=== PATIENT | female | born 1960 | race African-American/Black ===

== ENCOUNTER 2020-01-25 16:15 | Inpatient (IN) | payer MEDICAID ==
[~2020-01-25] VITALS: Ht 157.5 cm; Wt 53.0 kg
[2020-01-25] MEDS ORDERED: LASIX20 MG PO (16:23)
[2020-01-25] MEDS ORDERED: BAYER CHEWABLE81 MG PO (16:23)
[2020-01-25] MEDS ORDERED: TOPAMAX50 MG PO (16:24)
[2020-01-25] MEDS ORDERED: METOPROLOL TART25 MG PO (16:24)
[2020-01-25] MEDS ORDERED: PLAVIX75 MG PO (16:24)
[2020-01-25] MEDS ORDERED: HYDRALAZINE HCL25 MG PO (16:25)
[2020-01-25] MEDS ORDERED: NORVASC10 MG PO (16:25)
[2020-01-25] MEDS ORDERED: GLUCOPHAGE1000 MG PO (16:26)
[2020-01-25] MEDS ORDERED: ATARAX 25 MG TA25 MG PO (16:26)
[2020-01-25 16:59] LABS: BASOPHILS 0.3 % (0-2); EOSINOPHILS 1.8 % (0-7); HEMATOCRIT 35.7 % (36.0-48.0); HEMOGLOBIN 11.1 g/dL (12-16); IMMATURE GRANULOCYTES 0.3 % (0-5); LYMPHOCYTES 16.7 % (15-50); MCH 25.9 pg (26.0-34.0); MCHC 31.1 g/dL (31.0-37.0); MCV 83.4 fL (80.0-100.0); MEAN PLATELET VOLUME 9.7 fL (7.4-10.4); MONOCYTES 4.5 % (2-11); NEUTROPHILS 76.4 % (40-80); PLATELET COUNT 495 10x3/uL (130-400); RBC 4.28 10x6/uL (4.00-5.40); RDW 17.8 % (11.5-14.5); WBC 10.4 10x3/uL (4.8-10.8)
[2020-01-25 17:12] LABS: ALBUMIN 2.4 g/dL (3.4-5.0); ANION GAP 16.1 mmol/L (8-16); BILIRUBIN - TOTAL 0.22 mg/dL (0.2-1.3); CALCIUM 8.7 mg/dL (8.5-10.1); CARBON DIOXIDE 16.3 mmol/L (21.0-32.0); CREATININE - SERUM 4.3 mg/dL (0.6-1.3); PROTEIN - SERUM 6.7 g/dL (6.4-8.2)
[2020-01-25 17:17] LABS: POTASSIUM - SERUM 6.4 mmol/L (3.5-5.1)
[2020-01-25 17:29] LABS: APTT 29.6 SECONDS (22.8-39.4); INR 0.91 (0.85-1.17); PROTIME 12.3 SECONDS (11.6-15.0)
[2020-01-25 17:35] LABS: SPECIFIC GRAVITY 1.005 (1.005-1.020)
[2020-01-25 17:36] LABS: BILIRUBIN NEGATIVE (NEGATIVE); GLUCOSE NEGATIVE (NEGATIVE); KETONE NEGATIVE (NEGATIVE); NITRITE NEGATIVE (NEGATIVE); UROBILINOGEN NORMAL (NORMAL)
[2020-01-25 17:38] LABS: RED CELLS - URINE NONE SEEN /hpf (0-5); WHITE CELLS - URINE 0-5 /hpf (NEGATIVE)
[2020-01-25 17:39] LABS: BACTERIA FEW /hpf (NEGATIVE); EPITHELIAL CELLS 0-5 /hpf (0-5)
[2020-01-25 17:43] LABS: UDS - AMPHET NEGATIVE QUAL (NEGATIVE); UDS - BARB NEGATIVE QUAL (NEGATIVE); UDS - BENZO NEGATIVE QUAL (NEGATIVE); UDS - COCAINE NEGATIVE QUAL (NEGATIVE); UDS - OPIATE NEGATIVE QUAL (NEGATIVE); UDS - PCP NEGATIVE QUAL (NEGATIVE); UDS - THC NEGATIVE QUAL (NEGATIVE)
[2020-01-25 17:52] LABS: CKMB 1.3 U/L (0.0-3.6); CREATINE KINASE 35 UL (21-215); THYROID STIMULATING HORMONE 2.46 uIU/mL (0.36-3.74)
[2020-01-25 17:54] LABS: TROPONIN-I 0.072 ng/mL (0.000-0.060)
[2020-01-25 19:00] VITALS: BP 178/97
[2020-01-25 20:00] VITALS: BP 192/105
[2020-01-25 21:00] VITALS: BP 201/109
[2020-01-25 22:00] VITALS: BP 187/109
[2020-01-25 22:08] LABS: COMPLEMENT C4 32.9 mg/dL (17.4-52.2)
[2020-01-25 22:51] LABS: ERYTHROCYTE SEDIMENTATION RATE 52 mm/hr (0-30)
[2020-01-25 23:00] VITALS: BP 166/85
[2020-01-25 23:29] VITALS: BP 148/98
[2020-01-26] VITALS (25 sets, daily range): BP systolic 140–196; BP diastolic 85–114
[2020-01-26 03:28] LABS: BASOPHILS 0.2 % (0-2); EOSINOPHILS 2.7 % (0-7); HEMATOCRIT 31.3 % (36.0-48.0); HEMOGLOBIN 9.7 g/dL (12-16); IMMATURE GRANULOCYTES 0.5 % (0-5); MCH 25.6 pg (26.0-34.0); MCV 82.6 fL (80.0-100.0); MEAN PLATELET VOLUME 9.4 fL (7.4-10.4); MONOCYTES 6.8 % (2-11); NEUTROPHILS 66.8 % (40-80); PLATELET COUNT 416 10x3/uL (130-400); RBC 3.79 10x6/uL (4.00-5.40); RDW 17.6 % (11.5-14.5); WBC 9.8 10x3/uL (4.8-10.8)
[2020-01-26 03:57] LABS: ANION GAP 14.5 mmol/L (8-16); BILIRUBIN - TOTAL 0.15 mg/dL (0.2-1.3); CALCIUM 8.3 mg/dL (8.5-10.1); CARBON DIOXIDE 16.9 mmol/L (21.0-32.0); CREATININE - SERUM 3.8 mg/dL (0.6-1.3); POTASSIUM - SERUM 5.4 mmol/L (3.5-5.1); PROTEIN - SERUM 5.7 g/dL (6.4-8.2); URIC ACID 6.9 mg/dL (2.6-7.2)
[2020-01-27] VITALS (14 sets, daily range): BP systolic 124–197; BP diastolic 66–107; Ht 157.5 cm; Wt 53.0 kg
[2020-01-27 06:34] LABS: BASOPHILS 0.3 % (0-2); EOSINOPHILS 2.6 % (0-7); HEMATOCRIT 31.1 % (36.0-48.0); HEMOGLOBIN 9.7 g/dL (12-16); IMMATURE GRANULOCYTES 0.3 % (0-5); LYMPHOCYTES 18.5 % (15-50); MCH 25.3 pg (26.0-34.0); MCHC 31.2 g/dL (31.0-37.0); MCV 81.2 fL (80.0-100.0); MEAN PLATELET VOLUME 9.7 fL (7.4-10.4); MONOCYTES 8.7 % (2-11); NEUTROPHILS 69.6 % (40-80); PLATELET COUNT 468 10x3/uL (130-400); RBC 3.83 10x6/uL (4.00-5.40); RDW 17.2 % (11.5-14.5); WBC 9.6 10x3/uL (4.8-10.8)
[2020-01-27 06:46] LABS: CALCIUM 7.6 mg/dL (8.5-10.1); CREATININE - SERUM 3.8 mg/dL (0.6-1.3); PHOSPHOROUS 4.3 mg/dL (2.5-4.9)
[2020-01-27 06:47] LABS: ANION GAP 12.7 mmol/L (8-16); CARBON DIOXIDE 26.5 mmol/L (21.0-32.0); POTASSIUM - SERUM 4.2 mmol/L (3.5-5.1)
--- NOTE | 2020-01-27 16:00 | MORECARE ---
CASE MANAGEMENT DISCHARGE SUMMARY PATIENT: MUNIR PRUETT UNIT: [id number] ADM DATE: 01/25/20 AGE: 59 : 58 SEX: F ROOM/BED: D.2134 AUTHOR: GENET PAVON PHYSICIAN: REFERRING PHYSICIAN: PETER KAPLAN MD DATE OF SERVICE: 01/27/20 Discharge Plan Patient Name: MUNRI PRUETT Facility: [facility]:[place] : 1960 Planned Disposition: Anticipated Discharge Date: Discharge Date: Expected LOS: Initial Reviewer: [email or web address] Initial Review Date: 01/27/2020 Generated: 01/27/20 4:59 pm Patient Name: MUNIR PRUETT Page 21584 at 1600 All edits/amendments must be made on the electronic document DICTATION DATE: 01/27/20 155 NETWORK SECURITY OFFICER: MADDIE 01/27/20 155 RPT#: [id number] DC DATE: STATUS: ADM IN [facility] [address] [place] [address] END OF REPORT
--- NOTE | 2020-01-27 16:21 | MORECARE ---
CASE MANAGEMENT DISCHARGE SUMMARY PATIENT: MUNIR PRUETT UNIT: [id number] ADM DATE: 01/25/20 AGE: 59 : 58 SEX: F ROOM/BED: D.2134 AUTHOR: GENET PAVON PHYSICIAN: REFERRING PHYSICIAN: PETER KAPLAN MD DATE OF SERVICE: 01/27/20 Discharge Plan Patient Name: MUNIR PRUETT Facility: [facility]:[place] : 1960 Planned Disposition: Home Anticipated Discharge Date: Discharge Date: Expected LOS: Initial Reviewer: [email or web address] Initial Review Date: 01/27/2020 Generated: 01/27/20 5:20 pm DCPIA - Discharge Planning Initial Assessment Updated by [email or web address]: Deion Kapoor on 01/27/20 4:15 pm * Is the patient Alert and Oriented? Yes * How many steps to enter\exit or inside your home? NONE * PCP ILEANA AMBROSIO * Pharmacy [facility] * Preadmission Environment Home with Family * ADLs Independent * Equipment None * Other Equipment NO MEDICAL EQUIPMENT PROVIDER PREFERENCE * List name and contact numbers for known caregivers / representatives who currently or will assist patient after discharge: ELLE GARCIA, MOM, ESVIN GARCIA, BROTHER, * Verbal permission to speak to the caregivers and representatives has been obtained from the patient. Yes * Community resources currently utilized None * Please name any agencies selected above. NONE * Additional services required to return to the preadmission environment? No * Can the patient safely return to the preadmission environment? Yes * Has this patient been hospitalized within the prior 30 days at any hospital? No Last DP export: 01/27/20 3:00 pm Patient Name: MUNIR PRUETT Page 88140 at 1621 All edits/amendments must be made on the electronic document DICTATION DATE: 01/27/20 162 SOFTWARE APPLICATIONS ARCHITECT: MADDIE 01/27/201619 RPT#: [id number] DC DATE: STATUS: ADM IN [address] [place] [address] END OF REPORT
--- NOTE | 2020-01-27 16:29 | MORECARE ---
CASE MANAGEMENT DISCHARGE SUMMARY PATIENT: MUNIR PRUETT UNIT: [id number] ADM DATE: 01/25/20 AGE: 59 : 58 SEX: F ROOM/BED: D.8624 AUTHOR: LIBRADO,DOC PHYSICIAN: REFERRING PHYSICIAN: PETER KAPLAN MD DATE OF SERVICE: 01/27/20 Discharge Plan Patient Name: MUNIR PRUETT Facility: [facility]:[place] : 1960 Planned Disposition: Home Anticipated Discharge Date: Discharge Date: Expected LOS: Initial Reviewer: [email or web address] Initial Review Date: 01/27/2020 Generated: 01/27/20 5:28 pm Comments DCP- Discharge Planning Updated by [id number]: Deion Kapoor on 01/27/20 3:[address] Patient Name: MUNIR PRUETT Admission Status: ER Accout number: [id number] Admission Date: 01-25-2020 : 1960 Admission Diagnosis: Attending: CARLITO Current LOS: 2 Anticipated DC Date: Planned Disposition: Home Primary Insurance: MEDICAID [place] Discharge Planning Comments: CM ATTEPTED TO SPEAK TO PT IN HALLWAY WITH NURSE AND OTHER STAFF PRESENT. PT HAD WALKED OUT OF NURSING UNIT IN PATIENT GOWN, STATES SHE IS LEAVING AND WILL NOT WAIT. WHEN HER PRESENT SITUATION AND LOCATION OF BEING IN [place] WAS EXPLAINED, PT STILL DEFIANT AND THREATING STAFF SAYING SHE WAS ABOUT TO "KICK SOMEBODY'S ASS". CM OBTAINED PHONE NUMBER FROM PT AFTER SHE WAS A BIT CALMER AND IN ROOM, PT REPORTS HER MOTHER'S NUMBER IS [phone]. CM CALLED AND THE NUMBER WAS NOT CORRECT. CM CALLED [phone], SPOKE TO JARAD ROMANO, PT'S PASTORS . SHE PROVIDED CM WITH PT'S MOTHER AND PT'S BROTHER'S PHONE NUMBERS: ELLE GARCIA, MOM, ESVIN GARCIA, BROTHER, CM CALLED ELLE GARCIA, MOM, . DOSSTARLAMiya REPORTS PT HAS LIVED WITH HER SINCE 1981. PT IS INDEPENDENT AT HOME, DESPITE HAVING TWO STROKES. 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 PT HAS NO MEDICAL EQUIPMENT AND THEY HAVE NO MEDICAL EQUIPMENT PROVIDER PREFERENCE. FAMILY PLANS TO MAINTENANCE MACHINE REPAIRER PT FOR DISCHARGE HOME BACK TO MOTHER'S HOME. ELLE STATES THAT THEY THOUGHT PT WAS HAVING ANOTHER STOKE AND SENT PT TO THE HOSPITAL AND THEY FOUND HER KIDNEYS WERE NOT DOING WELL AND SENT PT TO [place] FOR TREATMENT. ELLE WILL SPEAK TO PT AND TRY TO CALM HER DOWN. CM TRANSFERRED THE CALL TO PT'S ROOM. PT'S FAMILY PLANS FOR PT TO RETURN HOME WITH HER MOTHER. FAMILY TO TRANPSORT HOME AT DISCHARGE. CM TO FOLLOW AND MONITOR FOR DISCHARGE NEEDS. Electronic Device Repairer: Deion Kapoor DCPIA - Discharge Planning Initial Assessment Updated by [email or web address]: Deion Kapoor on 01/27/20 4:15 pm * Is the patient Alert and Oriented? Yes * How many steps to enter\\exit or inside your home? NONE * PCP ILEANA AMBROSIO * Pharmacy [facility] IN [place] * Preadmission Environment Home with Family * ADLs Independent * Equipment None * Other Equipment NO MEDICAL EQUIPMENT PROVIDER PREFERENCE * List name and contact numbers for known caregivers / representatives who currently or will assist patient after discharge: ELLE GARCIA, MOM, ESVIN GARCIA, BROTHER, * Verbal permission to speak to the caregivers and representatives has been obtained from the patient. Yes * Community resources currently utilized None * Please name any agencies selected above. NONE * Additional services required to return to the preadmission environment? No * Can the patient safely return to the preadmission environment? Yes * Has this patient been hospitalized within the prior 30 days at any hospital? No Last DP export: 01/27/20 3:21 pm Patient Name: MUNIR PRUETT Page 62898 at 1629 All edits/amendments must be made on the electronic document DICTATION DATE: 01/27/201627 CASE LOADER OPERATOR: MADDIE 01/27/201627 RPT#: [id number] DC DATE: STATUS: ADM IN [facility] [address] [place] [address] END OF REPORT
--- NOTE | 2020-01-27 16:51 | MORECARE ---
CASE MANAGEMENT DISCHARGE SUMMARY PATIENT: MUNIR PRUETT UNIT: [id number] ADM DATE: 01/25/20 AGE: 59 : 58 SEX: F ROOM/BED: D.9064 AUTHOR: LIBRADO,DOC PHYSICIAN: REFERRING PHYSICIAN: PETER KAPLAN MD DATE OF SERVICE: 01/27/20 Discharge Plan Patient Name: MUNIR PRUETT Facility: [facility]:[place] : 1960 Planned Disposition: Home Anticipated Discharge Date: Discharge Date: Expected LOS: Initial Reviewer: [email or web address] Initial Review Date: 01/27/2020 Generated: 01/27/20 5:51 pm Comments DCP- Discharge Planning Updated by [email or web address]: Deion Kapoor on 01/27/20 3:[address] Patient Name: MUNIR PRUETT Admission Status: ER Accout number: [id number] Admission Date: 01-25-2020 : 1960 Admission Diagnosis: Attending: CARLITO Current LOS: 2 Anticipated DC Date: Planned Disposition: Home Primary Insurance: MEDICAID [place] Discharge Planning Comments: CM ATTEPTED TO SPEAK TO PT IN HALLWAY WITH NURSE AND OTHER STAFF PRESENT. PT HAD WALKED OUT OF NURSING UNIT IN PATIENT GOWN, STATES SHE IS LEAVING AND WILL NOT WAIT. WHEN HER PRESENT SITUATION AND LOCATION OF BEING IN [place] WAS EXPLAINED, PT STILL DEFIANT AND THREATING STAFF SAYING SHE WAS ABOUT TO "KICK SOMEBODY'S ASS". CM OBTAINED PHONE NUMBER FROM PT AFTER SHE WAS A BIT CALMER AND IN ROOM, PT REPORTS HER MOTHER'S NUMBER IS [phone]. CM CALLED AND THE NUMBER WAS NOT CORRECT. CM CALLED [phone], SPOKE TO JARAD ROMANO, PT'S PASTORS . SHE PROVIDED CM WITH PT'S MOTHER AND PT'S BROTHER'S PHONE NUMBERS: ELLE GARCIA, MOM, ESVIN GARCIA, BROTHER, CM CALLED ELLE GARCIA, MOM, . DOSSTARLAMiya REPORTS PT HAS LIVED WITH HER SINCE 1981. PT IS INDEPENDENT AT HOME, DESPITE HAVING TWO STROKES. 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 PT HAS NO MEDICAL EQUIPMENT AND THEY HAVE NO MEDICAL EQUIPMENT PROVIDER PREFERENCE. FAMILY PLANS TO DEMAND MANAGER PT FOR DISCHARGE HOME BACK TO MOTHER'S HOME. ELLE STATES THAT THEY THOUGHT PT WAS HAVING ANOTHER STOKE AND SENT PT TO THE HOSPITAL AND THEY FOUND HER KIDNEYS WERE NOT DOING WELL AND SENT PT TO [place] FOR TREATMENT. ELLE WILL SPEAK TO PT AND TRY TO CALM HER DOWN. CM TRANSFERRED THE CALL TO PT'S ROOM. PT'S FAMILY PLANS FOR PT TO RETURN HOME WITH HER MOTHER. FAMILY TO TRANPSORT HOME AT DISCHARGE. CM TO FOLLOW AND MONITOR FOR DISCHARGE NEEDS. Sweatband Separator: Deion Kapoor DCPIA - Discharge Planning Initial Assessment Updated by [id number]: Deion Kapoor on 01/27/20 4:48 pm * Is the patient Alert and Oriented? Yes * How many steps to enter\\exit or inside your home? NONE * PCP ILEANA AMBROSIO * Pharmacy [facility] IN [place] * Preadmission Environment Home with Family * ADLs Independent * Equipment None * Other Equipment NO MEDICAL EQUIPMENT PROVIDER PREFERENCE * List name and contact numbers for known caregivers / representatives who currently or will assist patient after discharge: ELLE GARCIA, MOM, ESVIN GARCIA, BROTHER, WHIT PRUETT, * Verbal permission to speak to the caregivers and representatives has been obtained from the patient. Yes * Community resources currently utilized None * Please name any agencies selected above. NONE * Additional services required to return to the preadmission environment? No * Can the patient safely return to the preadmission environment? Yes * Has this patient been hospitalized within the prior 30 days at any hospital? No Last DP export: 01/27/20 3:29 pm Patient Name: MUNIR PRUETT Page 32362 at 1651 All edits/amendments must be made on the electronic document DICTATION DATE: 01/27/201650 JAVA SWING DEVELOPER: MADDIE 01/27/201650 RPT#: [id number] DC DATE: STATUS: ADM IN [facility] [place] [address] [place] [address] END OF REPORT
[2020-01-28 04:12] VITALS: BP 129/67
[2020-01-28 05:29] LABS: BASOPHILS 0.3 % (0-2); EOSINOPHILS 4.4 % (0-7); HEMATOCRIT 28.6 % (36.0-48.0); HEMOGLOBIN 8.7 g/dL (12-16); IMMATURE GRANULOCYTES 0.1 % (0-5); LYMPHOCYTES 31.9 % (15-50); MCH 25.1 pg (26.0-34.0); MCHC 30.4 g/dL (31.0-37.0); MCV 82.7 fL (80.0-100.0); MEAN PLATELET VOLUME 9.8 fL (7.4-10.4); MONOCYTES 7.6 % (2-11); NEUTROPHILS 55.7 % (40-80); PLATELET COUNT 379 10x3/uL (130-400); RBC 3.46 10x6/uL (4.00-5.40); WBC 7.8 10x3/uL (4.8-10.8)
[2020-01-28 05:53] LABS: ANION GAP 13.1 mmol/L (8-16); CALCIUM 7.1 mg/dL (8.5-10.1); CARBON DIOXIDE 23.8 mmol/L (21.0-32.0); CREATININE - SERUM 3.8 mg/dL (0.6-1.3); PHOSPHOROUS 5.2 mg/dL (2.5-4.9); POTASSIUM - SERUM 3.9 mmol/L (3.5-5.1)
[2020-01-28 09:08] LABS: ANA REFLEX - DIRECT Negative (Negative)
[2020-01-28 09:42] VITALS: BP 123/60
[2020-01-28 10:08] LABS: UPE RAND - ALBUMIN 44.2 % (()); UPE RAND - ALPHA 1 GLOBULIN 7.7 % (()); UPE RAND - ALPHA 2 GLOBULIN 7.6 % (()); UPE RAND - BETA GLOBULIN 21.5 % (())
[2020-01-28 11:08] LABS: SPE - A/G RATIO 0.8 (0.7-1.7); SPE - ALBUMIN 2.5 g/dL (2.9-4.4); SPE - ALPHA-1 GLOBULIN 0.2 g/dL (0.0-0.4); SPE - ALPHA-2 GLOBULIN 1.1 g/dL (0.4-1.0); SPE - GAMMA GLOBULIN 0.8 g/dL (0.4-1.8); SPE - M-SPIKE Not Observed g/dL (Not Observed); SPE - TOTAL PROTEIN 5.6 g/dL (6.0-8.5)
--- NOTE | 2020-01-28 12:42 | CN ---
PATIENT NAME:MUNIR PRUETT MEDICAL RECORD: [id number] : 58 LOCATION:D. D.2134 ADMIT DATE: 01/25/20 ACCOUNT: [id number] CONSULTING PHYSICIAN: BRIDGETT GUERRA MD REFERRING PHYSICIAN: PETER KAPLAN MD DATE OF CONSULTATION: 01/27/2020 IDENTIFYING DATA: The patient is 59 years old and she is admitted to the hospital on a voluntary basis. CHIEF COMPLAINT: Mental status change. HISTORY OF PRESENT ILLNESS: The patient is transferred here from an outlying hospital. She has a history of chronic renal failure, was hyperkalemic and she also has diabetes, hypertension, and nephrotic syndrome. She currently has been quite agitated and confused. She has been coming out into the alcocer and threatening to assault some of the staff members. She now denies this and actually she is cooperative with me, but it is clear she is quite confused. She is not fully oriented and is unable to even tell me what her second master's degrees is in despite thinking long and hard to answer the question. Her urine drug screen is negative. I am not aware of any history of chronic mental illness. ASSESSMENT: Metabolic encephalopathy. PLAN: The patient is going to be started on a scheduled dose of an antipsychotic along with p.r.n. and antipsychotic medication. It is too early to say if she has an underlying dementia, although it is likely that she does as she has had 2 previous strokes and the neuro imaging is consistent with chronic degenerative changes. It does appear that she is in need of supervision and I do not have any knowledge about her family or the support system that they can provide. TRANSINT:[id number] Voice Confirmation ID: [id number] DOCUMENT ID: [id number] BRIDGETT GUERRA MD at 1242 CC: [id number] DICTATION DATE: 01/27/20 173 WELDING TEACHER: 01/27/20 1819 ADM IN [place] [address] [place] [address]
[2020-01-28 17:39] VITALS: BP 116/77
[2020-01-29] VITALS: BP 149/83
[2020-01-29 04:00] VITALS: BP 150/80
[2020-01-29 06:45] LABS: BASOPHILS 0.4 % (0-2); EOSINOPHILS 5.2 % (0-7); HEMATOCRIT 28.8 % (36.0-48.0); HEMOGLOBIN 8.8 g/dL (12-16); IMMATURE GRANULOCYTES 0.3 % (0-5); MCH 25.4 pg (26.0-34.0); MCHC 30.6 g/dL (31.0-37.0); MCV 83.2 fL (80.0-100.0); MEAN PLATELET VOLUME 9.8 fL (7.4-10.4); MONOCYTES 7.8 % (2-11); NEUTROPHILS 60.3 % (40-80); PLATELET COUNT 335 10x3/uL (130-400); RBC 3.46 10x6/uL (4.00-5.40); RDW 16.7 % (11.5-14.5); WBC 7.7 10x3/uL (4.8-10.8)
[2020-01-29 06:52] LABS: CARBON DIOXIDE 21.6 mmol/L (21.0-32.0); PHOSPHOROUS 5.4 mg/dL (2.5-4.9)
[2020-01-29 07:08] LABS: ANION GAP 14.7 mmol/L (8-16); POTASSIUM - SERUM 3.3 mmol/L (3.5-5.1)
[2020-01-29 07:13] LABS: CALCIUM 6.9 mg/dL (8.5-10.1)
[2020-01-29 08:11] VITALS: BP 127/70
[2020-01-29 11:57] VITALS: BP 128/68
[2020-01-29 16:50] VITALS: BP 148/83
[2020-01-29 20:00] VITALS: BP 150/75
[2020-01-30] VITALS: BP 156/77
[2020-01-30 04:00] VITALS: BP 165/78
[2020-01-30 05:51] LABS: BASOPHILS 0.2 % (0-2); HEMATOCRIT 28.6 % (36.0-48.0); HEMOGLOBIN 8.7 g/dL (12-16); IMMATURE GRANULOCYTES 0.4 % (0-5); LYMPHOCYTES 16.5 % (15-50); MCH 25.4 pg (26.0-34.0); MCHC 30.4 g/dL (31.0-37.0); MCV 83.6 fL (80.0-100.0); MEAN PLATELET VOLUME 9.9 fL (7.4-10.4); NEUTROPHILS 71.9 % (40-80); PLATELET COUNT 337 10x3/uL (130-400); RBC 3.42 10x6/uL (4.00-5.40); RDW 16.5 % (11.5-14.5); WBC 9.1 10x3/uL (4.8-10.8)
[2020-01-30 06:30] LABS: ANION GAP 15.7 mmol/L (8-16); CARBON DIOXIDE 19.3 mmol/L (21.0-32.0); CREATININE - SERUM 4.1 mg/dL (0.6-1.3); PHOSPHOROUS 5.6 mg/dL (2.5-4.9)
--- NOTE | 2020-01-30 11:19 | MORECARE ---
CASE MANAGEMENT DISCHARGE SUMMARY PATIENT: MUNIR PRUETT UNIT: [id number] ADM DATE: 01/25/20 AGE: 59 : 58 SEX: F ROOM/BED: D.3958 AUTHOR: LIBRADO,DOC PHYSICIAN: REFERRING PHYSICIAN: PETER KAPLAN MD DATE OF SERVICE: 01/30/20 Discharge Plan Patient Name: MUNIR PRUETT Facility: [facility]:[place] : 1960 Planned Disposition: Home Anticipated Discharge Date: Discharge Date: Expected LOS: Initial Reviewer: [email or web address] Initial Review Date: 01/27/2020 Generated: 01/30/20 12:19 pm DCP- Discharge Planning Updated by [email or web address]: Deion Kapoor on 01/27/20 3:[address] Patient Name: MUNIR PRUETT Admission Status: ER Accout number: [id number] Admission Date: 01-25-2020 : 1960 Admission Diagnosis: Attending: CARLITO Current LOS: 2 Anticipated DC Date: Planned Disposition: Home Primary Insurance: MEDICAID [place] Discharge Planning Comments: CM ATTEPTED TO SPEAK TO PT IN HALLWAY WITH NURSE AND OTHER STAFF PRESENT. PT HAD WALKED OUT OF NURSING UNIT IN PATIENT GOWN, STATES SHE IS LEAVING AND WILL NOT WAIT. WHEN HER PRESENT SITUATION AND LOCATION OF BEING IN [place] WAS EXPLAINED, PT STILL DEFIANT AND THREATING STAFF SAYING SHE WAS ABOUT TO "KICK SOMEBODY'S ASS". CM OBTAINED PHONE NUMBER FROM PT AFTER SHE WAS A BIT CALMER AND IN ROOM, PT REPORTS HER MOTHER'S NUMBER IS [phone]. CM CALLED AND THE NUMBER WAS NOT CORRECT. CM CALLED [phone], SPOKE TO JARAD ROMANO, PT'S PASTORS . SHE PROVIDED CM WITH PT'S MOTHER AND PT'S BROTHER'S PHONE NUMBERS: ELLE GARCIA, MOM, ESVIN GARCIA, BROTHER, CM CALLED ELLE GARCIA, MOM, . DOSSTARLAMiya REPORTS PT HAS LIVED WITH HER SINCE 1981. PT IS INDEPENDENT AT HOME, DESPITE HAVING TWO STROKES. 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 PT HAS NO MEDICAL EQUIPMENT AND THEY HAVE NO MEDICAL EQUIPMENT PROVIDER PREFERENCE. FAMILY PLANS TO ANALYSIS CONSULTANT PT FOR DISCHARGE HOME BACK TO MOTHER'S HOME. ELLE STATES THAT THEY THOUGHT PT WAS HAVING ANOTHER STOKE AND SENT PT TO THE HOSPITAL AND THEY FOUND HER KIDNEYS WERE NOT DOING WELL AND SENT PT TO [place] FOR TREATMENT. ELLE WILL SPEAK TO PT AND TRY TO CALM HER DOWN. CM TRANSFERRED THE CALL TO PT'S ROOM. PT'S FAMILY PLANS FOR PT TO RETURN HOME WITH HER MOTHER. FAMILY TO TRANPSORT HOME AT DISCHARGE. CM TO FOLLOW AND MONITOR FOR DISCHARGE NEEDS. Life Skills Coordinator Volunteer: Deion Kapoor DCPIA - Discharge Planning Initial Assessment Updated by [id number]: Deion Kapoor on 01/30/20 11:18 am * Is the patient Alert and Oriented? Yes * How many steps to enter\\exit or inside your home? NONE * PCP ILEANA AMBROSIO * Pharmacy [facility] IN [place] * Preadmission Environment Home with Family * ADLs Independent * Equipment None * Other Equipment NO MEDICAL EQUIPMENT PROVIDER PREFERENCE * List name and contact numbers for known caregivers / representatives who currently or will assist patient after discharge: ELLE GARCIA, MOM, ANN-MARIE PRUETT, SON, ESVIN GARCIA, BROTHER, WHIT PRUETT, grand son, * Verbal permission to speak to the caregivers and representatives has been obtained from the patient. Yes * Community resources currently utilized None * Please name any agencies selected above. NONE * Additional services required to return to the preadmission environment? No * Can the patient safely return to the preadmission environment? Yes * Has this patient been hospitalized within the prior 30 days at any hospital? No Last DP export: 01/27/20 3:51 pm Patient Name: MUNIR PRUETT Page 65193 at 1119 All edits/amendments must be made on the electronic document DICTATION DATE: 01/30/20 1119 DERRICK OPERATOR: MADDIE 01/30/20 1119 RPT#: [id number] DC DATE: STATUS: ADM IN [facility] [address] [place] [address] END OF REPORT
--- NOTE | 2020-01-30 11:53 | MORECARE ---
CASE MANAGEMENT DISCHARGE SUMMARY PATIENT: MUNIR PRUETT UNIT: [id number] ADM DATE: 01/25/20 AGE: 59 : 58 SEX: F ROOM/BED: D.1788 AUTHOR: LIBRADO,DOC PHYSICIAN: REFERRING PHYSICIAN: PETER KAPLAN MD DATE OF SERVICE: 01/30/20 Discharge Plan Patient Name: MUNIR PRUETT Facility: [facility]:[place] : 1960 Planned Disposition: Nursing Facility ROBINA Cert Anticipated Discharge Date: Discharge Date: Expected LOS: Initial Reviewer: [email or web address] Initial Review Date: 01/27/2020 Generated: 01/30/20 12:52 pm DCP- Discharge Planning Updated by [email or web address]: Deion Kapoor on 01/27/20 3:[address] Patient Name: MUNIR PRUETT Admission Status: ER Accout number: [id number] Admission Date: 01-25-2020 : 1960 Admission Diagnosis: Attending: CARLITO Current LOS: 2 Anticipated DC Date: Planned Disposition: Home Primary Insurance: MEDICAID [place] Discharge Planning Comments: CM ATTEPTED TO SPEAK TO PT IN HALLWAY WITH NURSE AND OTHER STAFF PRESENT. PT HAD WALKED OUT OF NURSING UNIT IN PATIENT GOWN, STATES SHE IS LEAVING AND WILL NOT WAIT. WHEN HER PRESENT SITUATION AND LOCATION OF BEING IN [place] WAS EXPLAINED, PT STILL DEFIANT AND THREATING STAFF SAYING SHE WAS ABOUT TO "KICK SOMEBODY'S ASS". CM OBTAINED PHONE NUMBER FROM PT AFTER SHE WAS A BIT CALMER AND IN ROOM, PT REPORTS HER MOTHER'S NUMBER IS [phone]. CM CALLED AND THE NUMBER WAS NOT CORRECT. CM CALLED [phone], SPOKE TO JARAD ROMANO, PT'S PASTORS . SHE PROVIDED CM WITH PT'S MOTHER AND PT'S BROTHER'S PHONE NUMBERS: ELLE GARCIA, MOM, ESVIN GARCIA, BROTHER, CM CALLED ELLE GARCIA, MOM, . ELLE REPORTS PT HAS LIVED WITH HER SINCE 1981. PT IS INDEPENDENT AT HOME, DESPITE HAVING TWO STROKES. 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 PT HAS NO MEDICAL EQUIPMENT AND THEY HAVE NO MEDICAL EQUIPMENT PROVIDER PREFERENCE. FAMILY PLANS TO CANDY DEPOSITING MACHINE OPERATOR PT FOR DISCHARGE HOME BACK TO MOTHER'S HOME. ELLE STATES THAT THEY THOUGHT PT WAS HAVING ANOTHER STOKE AND SENT PT TO THE HOSPITAL AND THEY FOUND HER KIDNEYS WERE NOT DOING WELL AND SENT PT TO [place] FOR TREATMENT. ELLE WILL SPEAK TO PT AND TRY TO CALM HER DOWN. CM TRANSFERRED THE CALL TO PT'S ROOM. PT'S FAMILY PLANS FOR PT TO RETURN HOME WITH HER MOTHER. FAMILY TO TRANPSORT HOME AT DISCHARGE. CM TO FOLLOW AND MONITOR FOR DISCHARGE NEEDS. Adjunct Writing Instructor: Deion Kapoor DCPIA - Discharge Planning Initial Assessment Updated by [email or web address]: Deion Kapoor on 01/30/20 11:18 am * Is the patient Alert and Oriented? Yes * How many steps to enter\\exit or inside your home? NONE * PCP ILEANA AMBROSIO * Pharmacy [facility] IN [place] * Preadmission Environment Home with Family * ADLs Independent * Equipment None * Other Equipment NO MEDICAL EQUIPMENT PROVIDER PREFERENCE * List name and contact numbers for known caregivers / representatives who currently or will assist patient after discharge: ELLE GARCIA, MOM, ANN-MARIE PRUETT, SON, ESVIN GARCIA, BROTHER, WHIT PRUETT, grand son, * Verbal permission to speak to the caregivers and representatives has been obtained from the patient. Yes * Community resources currently utilized None * Please name any agencies selected above. NONE * Additional services required to return to the preadmission environment? No * Can the patient safely return to the preadmission environment? Yes * Has this patient been hospitalized within the prior 30 days at any hospital? No External Providers External Provider: OTHER-OTHER Next Contact Date: 01/30/2020 Service Request Date: Service Type: Resolution: Reviewer: Comments: Coverage Notice Reviewer: [email or web address] - Deion Kapoor Notice Issued Date-Time: 01/30/2020 11:45 Notice Type: Patient Choice Letter Notice Delivered To: Patient Relationship to Patient: Operations Asst Name: Delivery Method: HAND - Hand Delivered Aisha Days: Prior Verbal Notification: Recipient Understood Notice: Yes Recipient Signature: Yes Med Rec Note Co-signed by Attending: Coverage Notice Comment: [facility] OR ANY NURSING FACILITY SELECTED BY HER SON Last DP export: 01/30/20 10:19 am Patient Name: MUNIR PRUETT Page 96617 at 1153 All edits/amendments must be made on the electronic document DICTATION DATE: 01/30/20 115 ONLINE PRODUCER: MADDIE 01/30/20 1152 RPT#: [id number] DC DATE: STATUS: ADM IN [facility] [address] [place] [address] END OF REPORT
--- NOTE | 2020-01-30 12:16 | MORECARE ---
CASE MANAGEMENT DISCHARGE SUMMARY PATIENT: MUNIR PRUETT UNIT: [id number] ADM DATE: 01/25/20 AGE: 59 : 58 SEX: F ROOM/BED: D.2479 AUTHOR: LIBRADO,DOC PHYSICIAN: REFERRING PHYSICIAN: PETER KAPLAN MD DATE OF SERVICE: 01/30/20 Discharge Plan Patient Name: MUNIR PRUETT Facility: [facility]:[place] : 1960 Planned Disposition: Nursing Facility [facility] Cert Anticipated Discharge Date: Discharge Date: Expected LOS: Initial Reviewer: [id number] Initial Review Date: 01/27/2020 Generated: 01/30/20 1:16 pm Comments DCP- Discharge Planning Updated by [email or web address]: Deion Kapoor on 01/30/20 11:[address] Patient Name: MUNIR PRUETT Encounter No: [id number] : 1960 Primary Insurance: MEDICAID [place] Anticipated DC Date: Planned Disposition: Nursing Facility ROB[facility] Cert External Planned Provider: [facility], LONG TERM CARE MEDICAID BED DCP follow-up note: JACK SPOKE TO AMI HEATH IN MDT MEETING, PT WILL NEED SUPERVISION TO GO HOME. JACK CALLED AND SPOKE TO PT'S MOTHER, ELLE GARCIA, ; MICHELLESIMiya REPORTS SHE IS NOT ABLE TO SUPERVISE PATIENT WHEN SHE IS "IN HER WAY". ELLE STATES THAT WHEN PT IS "IN HER WAY", SHE DOES NOT LISTEN TO DOSSIE AT ALL. SHE WILL NOT TAKE A BATH, REFUSES MEDICATIONS AND WILL NOT LET HER BLOOD SUGAR BE TAKEN PRESCRIBED. ELLE REPORTS THAT PT HAS 4 LIVING SONS AND THAT THE OLDEST SON WHO LIVES IN [place], IS GETTING POWER OF METALSMITH HELPER FOR PATIENT; HIS NAME IS ANNM-ARIE PRUETT, , THEY ARE WORKING TO GET PT INTO THE [facility]. THEY STARTED WORKING ON THIS WHEN PT WAS IN THE [facility] PRIOR TO GOING TO [place]. JACK CALLED ANN-MARIE PRUETT, , LEFT MESSAGE ASKING FOR RETURN CALL. JACK MET WITH PT IN ROOM, DISCUSSED PLACEMENT. PT REPORTS AGREEMENT WITH HER SON, THEY ARE TRYING TO GET HER INTO THE [facility] IN [place]. CHOICE SIGNED FOR [facility] AND ANY OTHER JAIL. PT ASSISTED CM IN COMPLETING JULIA SCREENING ASSESSMENT AND SIGNED. CM FAXED JULIA SCREENING TO [facility] WITH SUPPORTING PAPERWORK TO [phone]. CM CALLED [facility] ([facility]), , SPOKE TO SEBAS WHO INFORMED CM THAT THEY HAVE NOT RECEIVED REFERRAL OR PHONE CALL PRIOR TO TODAY REGARDING PT NEEDING PLACEMENT. SEBAS ADVISED THAT REFERRAL SHOULD BE FAXED TO THE [facility] AT [phone], ATTENTION JOHN OF ADMISSIONS. CM WAITING RETURN CALL FROM DENISE PRUETT TO VERIFY REFERRAL TO BE SENT TO THE [facility]. CM WAITING JULIA DETERMINATION FOR JAIL ADMISSION. Deion Kapoor, CASE MANAGEMENT DCP- Discharge Planning Updated by [id number]: Deion Kapoor on 01/27/20 3:[address] Patient Name: MUNIR PRUETT Admission Status: ER Accout number: [id number] Admission Date: 01-25-2020 : 1960 Admission Diagnosis: Attending: CARLITO Current LOS: 2 Anticipated DC Date: Planned Disposition: Home Primary Insurance: MEDICAID [place] Discharge Planning Comments: CM ATTEPTED TO SPEAK TO PT IN HALLWAY WITH NURSE AND OTHER STAFF PRESENT. PT HAD WALKED OUT OF NURSING UNIT IN PATIENT GOWN, STATES SHE IS LEAVING AND WILL NOT WAIT. WHEN HER PRESENT SITUATION AND LOCATION OF BEING IN [place] WAS EXPLAINED, PT STILL DEFIANT AND THREATING STAFF SAYING SHE WAS ABOUT TO "KICK SOMEBODY'S ASS". CM OBTAINED PHONE NUMBER FROM PT AFTER SHE WAS A BIT CALMER AND IN ROOM, PT REPORTS HER MOTHER'S NUMBER IS [phone]. CM CALLED AND THE NUMBER WAS NOT CORRECT. CM CALLED [phone], SPOKE TO JRAAD ROMANO, PT'S PASTORS . SHE PROVIDED CM WITH PT'S MOTHER AND PT'S BROTHER'S PHONE NUMBERS: ELLE GARCIA, MOM, ESVIN GARCIA, BROTHER, CM CALLED ELLE GARCIA, MOM, . DOSSIMiya REPORTS PT HAS LIVED WITH HER SINCE 1981. PT IS INDEPENDENT AT HOME, DESPITE HAVING TWO STROKES. 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 PT HAS NO MEDICAL EQUIPMENT AND THEY HAVE NO MEDICAL EQUIPMENT PROVIDER PREFERENCE. FAMILY PLANS TO BAKERY DECORATOR PT FOR DISCHARGE HOME BACK TO MOTHER'S HOME. ELLE STATES THAT THEY THOUGHT PT WAS HAVING ANOTHER STOKE AND SENT PT TO THE HOSPITAL AND THEY FOUND HER KIDNEYS WERE NOT DOING WELL AND SENT PT TO [place] FOR TREATMENT. ELLE WILL SPEAK TO PT AND TRY TO CALM HER DOWN. CM TRANSFERRED THE CALL TO PT'S ROOM. PT'S FAMILY PLANS FOR PT TO RETURN HOME WITH HER MOTHER. FAMILY TO TRANPSORT HOME AT DISCHARGE. CM TO FOLLOW AND MONITOR FOR DISCHARGE NEEDS. Front Office Specialist: Deion Kapoor DCPIA - Discharge Planning Initial Assessment Updated by [id number]: Deion Kapoor on 01/30/20 11:18 am * Is the patient Alert and Oriented? Yes * How many steps to enter\\exit or inside your home? NONE * PCP ILEANA AMBROSIO * Pharmacy [facility] [place] * Preadmission Environment Home with Family * ADLs Independent * Equipment None * Other Equipment NO MEDICAL EQUIPMENT PROVIDER PREFERENCE * List name and contact numbers for known caregivers / representatives who currently or will assist patient after discharge: ELLE GARCIA, MOM, ANN-MARIE PRUETT, SON, ESVIN GARCIA, BROTHER, WHIT PRUETT, grand son, * Verbal permission to speak to the caregivers and representatives has been obtained from the patient. Yes * Community resources currently utilized None * Please name any agencies selected above. NONE * Additional services required to return to the preadmission environment? No * Can the patient safely return to the preadmission environment? Yes * Has this patient been hospitalized within the prior 30 days at any hospital? No Coverage Notice Reviewer: [id number] - Deion Kapoor Notice Issued Date-Time: 01/30/2020 11:45 Notice Type: Patient Choice Letter Notice Delivered To: Patient Relationship to Patient: Processing Operator Name: Delivery Method: HAND - Hand Delivered Aisha Days: Prior Verbal Notification: Recipient Understood Notice: Yes Recipient Signature: Yes Med Rec Note Co-signed by Attending: Coverage Notice Comment: [facility] OR ANY NURSING FACILITY SELECTED BY HER SON Last DP export: 01/30/20 10:53 am Patient Name: MUNIR PRUETT Page 27652 at 1216 All edits/amendments must be made on the electronic document DICTATION DATE: 01/30/201215 CHARGING PLUG PLACER: MADDIE 01/30/20 1216 RPT#: [id number] DC DATE: STATUS: ADM IN [facility] [address] [place] [address] END OF REPORT
[2020-01-30 12:57] VITALS: BP 154/71
--- NOTE | 2020-01-30 14:03 | MORECARE ---
CASE MANAGEMENT DISCHARGE SUMMARY PATIENT: MUNIR PRUETT UNIT: [id number] ADM DATE: 01/25/20 AGE: 59 : 58 SEX: F ROOM/BED: D.9501 AUTHOR: LIBRADO,DOC PHYSICIAN: REFERRING PHYSICIAN: PETER KAPLAN MD DATE OF SERVICE: 01/30/20 Discharge Plan Patient Name: MUNIR PRUETT Facility: [facility]:[place] : 1960 Planned Disposition: Nursing Facility [facility] Cert Anticipated Discharge Date: Discharge Date: Expected LOS: Initial Reviewer: [id number] Initial Review Date: 01/27/2020 Generated: 01/30/20 3:02 pm Comments DCP- Discharge Planning Updated by [id number]: Deion Kapoor on 01/30/20 11:[address] Patient Name: MUNIR PRUETT Encounter No: [id number] : 1960 Primary Insurance: [place]ID [place] Anticipated DC Date: Planned Disposition: Nursing Facility [facility] Cert External Planned Provider: [facility], LONG TERM CARE MEDICAID BED DCP follow-up note: JACK SPOKE TO AMI HEATH IN MDT MEETING, PT WILL NEED SUPERVISION TO GO HOME. JACK CALLED AND SPOKE TO PT'S MOTHER, ELLE GARCIA, ; MICHELLESIMiya REPORTS SHE IS NOT ABLE TO SUPERVISE PATIENT WHEN SHE IS "IN HER WAY". ELLE STATES THAT WHEN PT IS "IN HER WAY", SHE DOES NOT LISTEN TO DOSSIE AT ALL. SHE WILL NOT TAKE A BATH, REFUSES MEDICATIONS AND WILL NOT LET HER BLOOD SUGAR BE TAKEN PRESCRIBED. ELLE REPORTS THAT PT HAS 4 LIVING SONS AND THAT THE OLDEST SON WHO LIVES IN [place], IS GETTING POWER OF HOUSE BUILDER FOR PATIENT; HIS NAME IS ANN-MARIE PRUETT, , THEY ARE WORKING TO GET PT INTO THE [facility]. THEY STARTED WORKING ON THIS WHEN PT WAS IN THE [facility] PRIOR TO GOING TO [place]. JACK CALLED ANN-MARIE PRUETT, , LEFT MESSAGE ASKING FOR RETURN CALL. JACK MET WITH PT IN ROOM, DISCUSSED PLACEMENT. PT REPORTS AGREEMENT WITH HER SON, THEY ARE TRYING TO GET HER INTO THE INTER[facility] IN [place]. CHOICE SIGNED FOR [facility] [facility] AND ANY OTHER INTERMEDIATE. PT ASSISTED CM IN COMPLETING JULIA SCREENING ASSESSMENT AND SIGNED. CM FAXED JULIA SCREENING TO [facility] WITH SUPPORTING PAPERWORK TO [phone]. CM CALLED [facility] ([facility]), , SPOKE TO SEBAS WHO INFORMED CM THAT THEY HAVE NOT RECEIVED REFERRAL OR PHONE CALL PRIOR TO TODAY REGARDING PT NEEDING PLACEMENT. SEBAS ADVISED THAT REFERRAL SHOULD BE FAXED TO THE [facility] AT [phone], ATTENTION JOHN OF ADMISSIONS. CM WAITING RETURN CALL FROM DENISE PRUETT TO VERIFY REFERRAL TO BE SENT TO THE [facility]. CM WAITING JULIA DETERMINATION FOR INTERMEDIATE ADMISSION. Deion Kapoor, CASE MANAGEMENT DCP- Discharge Planning Updated by [id number]: Deion Kapoor on 01/27/20 3:[address] Patient Name: MUNIR PRUETT Admission Status: ER Accout number: [id number] Admission Date: 01-25-2020 : 1960 Admission Diagnosis: Attending: CARLITO Current LOS: 2 Anticipated DC Date: Planned Disposition: Home Primary Insurance: MED[place]ID [place] Discharge Planning Comments: CM ATTEPTED TO SPEAK TO PT IN HALLWAY WITH NURSE AND OTHER STAFF PRESENT. PT HAD WALKED OUT OF NURSING UNIT IN PATIENT GOWN, STATES SHE IS LEAVING AND WILL NOT WAIT. WHEN HER PRESENT SITUATION AND LOCATION OF BEING IN [place] WAS EXPLAINED, PT STILL DEFIANT AND THREATING STAFF SAYING SHE WAS ABOUT TO "KICK SOMEBODY'S ASS". CM OBTAINED PHONE NUMBER FROM PT AFTER SHE WAS A BIT CALMER AND IN ROOM, PT REPORTS HER MOTHER'S NUMBER IS [phone]. CM CALLED AND THE NUMBER WAS NOT CORRECT. CM CALLED [phone], SPOKE TO JARAD ROMANO, PT'S PASTORS . SHE PROVIDED CM WITH PT'S MOTHER AND PT'S BROTHER'S PHONE NUMBERS: ELLE GARCIA, MOM, ESVIN GARCIA, BROTHER, CM CALLED ELLE GARCIA, MOM, . DOSSIMiya REPORTS PT HAS LIVED WITH HER SINCE 1981. PT IS INDEPENDENT AT HOME, DESPITE HAVING TWO STROKES. 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 PT HAS NO MEDICAL EQUIPMENT AND THEY HAVE NO MEDICAL EQUIPMENT PROVIDER PREFERENCE. FAMILY PLANS TO PALLIATIVE MEDICINE PHYSICIAN PT FOR DISCHARGE HOME BACK TO MOTHER'S HOME. ELLE STATES THAT THEY THOUGHT PT WAS HAVING ANOTHER STOKE AND SENT PT TO THE HOSPITAL AND THEY FOUND HER KIDNEYS WERE NOT DOING WELL AND SENT PT TO [place] FOR TREATMENT. ELLE WILL SPEAK TO PT AND TRY TO CALM HER DOWN. CM TRANSFERRED THE CALL TO PT'S ROOM. PT'S FAMILY PLANS FOR PT TO RETURN HOME WITH HER MOTHER. FAMILY TO TRANPSORT HOME AT DISCHARGE. CM TO FOLLOW AND MONITOR FOR DISCHARGE NEEDS. Cafe Aide: Deion Kapoor DCPIA - Discharge Planning Initial Assessment Updated by [id number]: Deion Kapoor on 01/30/20 11:18 am * Is the patient Alert and Oriented? Yes * How many steps to enter\\exit or inside your home? NONE * PCP ILEANA AMBROSIO * Pharmacy [facility] IN [place] * Preadmission Environment Home with Family * ADLs Independent * Equipment None * Other Equipment NO MEDICAL EQUIPMENT PROVIDER PREFERENCE * List name and contact numbers for known caregivers / representatives who currently or will assist patient after discharge: ELLE GARCIA, MOM, ANN-MARIE PRUETT, SON, ESVIN GARCIA, BROTHER, WHIT PRUETT, grand son, * Verbal permission to speak to the caregivers and representatives has been obtained from the patient. Yes * Community resources currently utilized None * Please name any agencies selected above. NONE * Additional services required to return to the preadmission environment? No * Can the patient safely return to the preadmission environment? Yes * Has this patient been hospitalized within the prior 30 days at any hospital? No External Providers [facility] Next Contact Date: 01/30/2020 Service Request Date: Service Type: Resolution: Reviewer: Comments: Coverage Notice Reviewer: [id number] - Deion Kapoor Notice Issued Date-Time: 01/30/2020 11:45 Notice Type: Patient Choice Letter Notice Delivered To: Patient Relationship to Patient: Bottom Crane Operator Name: Delivery Method: HAND - Hand Delivered Aisha Days: Prior Verbal Notification: Recipient Understood Notice: Yes Recipient Signature: Yes Med Rec Note Co-signed by Attending: Coverage Notice Comment: [facility] OR ANY NURSING FACILITY SELECTED BY HER SON Last DP export: 01/30/20 11:16 am Patient Name: MUNIR PRUETT Page [id number] at 1403 All edits/amendments must be made on the electronic document DICTATION DATE: 01/30/201401 EDUCATIONAL PROGRAM DIRECTOR: MADDIE 01/30/20 140 RPT#: [id number] DC DATE: STATUS: ADM IN [facility] [address] [place] [address] END OF REPORT
--- NOTE | 2020-01-30 15:12 | MORECARE ---
CASE MANAGEMENT DISCHARGE SUMMARY PATIENT: MUNIR PRUETT UNIT: [id number] ADM DATE: 01/25/20 AGE: 59 : 58 SEX: F ROOM/BED: D.3894 AUTHOR: LIBRADO,DOC PHYSICIAN: REFERRING PHYSICIAN: PETER KAPLAN MD DATE OF SERVICE: 01/30/20 Discharge Plan Patient Name: MUNIR PRUETT Facility: [facility]:[place] : 1960 Planned Disposition: Nursing Facility [facility] Cert Anticipated Discharge Date: Discharge Date: Expected LOS: Initial Reviewer: [id number] Initial Review Date: 01/27/2020 Generated: 01/30/20 4:11 pm Comments DCP- Discharge Planning Updated by [id number]: Zeinab Slaughter on 01/30/20 2:[address] Patient Name: MUNIR PRUETT Encounter No: [id number] : 1960 Primary Insurance: MEDICAID [place] Anticipated DC Date: Planned Disposition: Nursing Facility [facility] Cert External Planned Provider: [facility], LONG TERM CARE MEDICAID BED DCP follow-up note: JACK SPOKE TO AMI HEATH IN MDT MEETING, PT WILL NEED SUPERVISION TO GO HOME. JACK CALLED AND SPOKE TO PT'S MOTHER, ELLE GARCIA, ; MICHELLESIMiya REPORTS SHE IS NOT ABLE TO SUPERVISE PATIENT WHEN SHE IS "IN HER WAY". ELLE STATES THAT WHEN PT IS "IN HER WAY", SHE DOES NOT LISTEN TO DOSSIE AT ALL. SHE WILL NOT TAKE A BATH, REFUSES MEDICATIONS AND WILL NOT LET HER BLOOD SUGAR BE TAKEN PRESCRIBED. ELLE REPORTS THAT PT HAS 4 LIVING SONS AND THAT THE OLDEST SON WHO LIVES IN [place], IS GETTING POWER OF MIDDLEWARE ARCHITECT FOR PATIENT; HIS NAME IS ANN-MARIE PRUETT, , THEY ARE WORKING TO GET PT INTO THE [facility]. THEY STARTED WORKING ON THIS WHEN PT WAS IN THE [facility] PRIOR TO GOING TO [place]. JACK CALLED ANN-MARIE PRUETT, , LEFT MESSAGE ASKING FOR RETURN CALL. JACK MET WITH PT IN ROOM, DISCUSSED PLACEMENT. PT REPORTS AGREEMENT WITH HER SON, THEY ARE TRYING TO GET HER INTO THE PRISON IN [place]. CHOICE SIGNED FOR [place] [facility] AND ANY OTHER PRISON. PT ASSISTED CM IN COMPLETING JULIA SCREENING ASSESSMENT AND SIGNED. CM FAXED JULIA SCREENING TO [facility] WITH SUPPORTING PAPERWORK TO [phone]. CM CALLED [facility] ([facility]), , SPOKE TO SEBAS WHO INFORMED CM THAT THEY HAVE NOT RECEIVED REFERRAL OR PHONE CALL PRIOR TO TODAY REGARDING PT NEEDING PLACEMENT. SEBAS ADVISED THAT REFERRAL SHOULD BE FAXED TO THE [facility] AT [phone], ATTENTION JOHN OF ADMISSIONS. CM WAITING RETURN CALL FROM DENISE PRUETT TO VERIFY REFERRAL TO BE SENT TO THE [facility]. CM WAITING JULIA DETERMINATION FOR PRISON ADMISSION. Zeinab Slaughter, CASE MANAGEMENT Appended by Zeinab Slaughter on 01/30/2020 15:05 CDT: CM RECEIVED CALL FROM PETER VERA WHO INFORMED CM THAT HE HAS DISCUSSED ADMISSION TO PRISON WITH [facility] IN [place]. PETER ASKED REFERRAL BE SENT THERE FOR PLACEMENT. CM FAXED REFERRAL TO THE [facility] AT [phone], ATTENTION JOHN OF ADMISSIONS. CM WAITING ADMISSION DETERMINATION FOR PENITENTIARY CARE FROM THE [facility] WELL JULIA DETERMINATION. ZEINAB SLAUGHTER, CASE MANAGEMENT DCP- Discharge Planning Updated by [id number]: Zeinab Slaughter on 01/27/20 3:[address] Patient Name: MUNIR PRUETT Admission Status: ER Accout number: [id number] Admission Date: 01-25-2020 : 1960 Admission Diagnosis: Attending: CARLITO Current LOS: 2 Anticipated DC Date: Planned Disposition: Home Primary Insurance: MEDICAID [place] Discharge Planning Comments: CM ATTEPTED TO SPEAK TO PT IN HALLWAY WITH NURSE AND OTHER STAFF PRESENT. PT HAD WALKED OUT OF NURSING UNIT IN PATIENT GOWN, STATES SHE IS LEAVING AND WILL NOT WAIT. WHEN HER PRESENT SITUATION AND LOCATION OF BEING IN [place] WAS EXPLAINED, PT STILL DEFIANT AND THREATING STAFF SAYING SHE WAS ABOUT TO "KICK SOMEBODY'S ASS". CM OBTAINED PHONE NUMBER FROM PT AFTER SHE WAS A BIT CALMER AND IN ROOM, PT REPORTS HER MOTHER'S NUMBER IS [phone]. CM CALLED AND THE NUMBER WAS NOT CORRECT. CM CALLED [phone], SPOKE TO JARAD ROMANO, PT'S PASTORS . SHE PROVIDED CM WITH PT'S MOTHER AND PT'S BROTHER'S PHONE NUMBERS: ELLE GARCIA MOM, ESVIN GARCIA, BROTHER, CM CALLED NIDA FAUST, . DOSSIE REPORTS PT HAS LIVED WITH HER SINCE 1981. PT IS INDEPENDENT AT HOME, DESPITE HAVING TWO STROKES. 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 PT HAS NO MEDICAL EQUIPMENT AND THEY HAVE NO MEDICAL EQUIPMENT PROVIDER PREFERENCE. FAMILY PLANS TO CONCESSION STAND ATTENDANT PT FOR DISCHARGE HOME BACK TO MOTHER'S HOME. ELLE STATES THAT THEY THOUGHT PT WAS HAVING ANOTHER STOKE AND SENT PT TO THE HOSPITAL AND THEY FOUND HER KIDNEYS WERE NOT DOING WELL AND SENT PT TO [place] FOR TREATMENT. ELLE WILL SPEAK TO PT AND TRY TO CALM HER DOWN. CM TRANSFERRED THE CALL TO PT'S ROOM. PT'S FAMILY PLANS FOR PT TO RETURN HOME WITH HER MOTHER. FAMILY TO TRANPSORT HOME AT DISCHARGE. CM TO FOLLOW AND MONITOR FOR DISCHARGE NEEDS. Testing Lead: Zeinab Slaughter DCPIA - Discharge Planning Initial Assessment Updated by [id number]: Zeinab Slaughter on 01/30/20 11:18 am * Is the patient Alert and Oriented? Yes * How many steps to enter\\exit or inside your home? NONE * PCP DR[facility] [place] * Pharmacy [facility] [place] * Preadmission Environment Home with Family * ADLs Independent * Equipment None * Other Equipment NO MEDICAL EQUIPMENT PROVIDER PREFERENCE * List name and contact numbers for known caregivers / representatives who currently or will assist patient after discharge: NIDA FAUST, ANN-MARIE PRUETT, SON, ESVIN GARCIA, BROTHER, WHIT PRUETT, grand son, * Verbal permission to speak to the caregivers and representatives has been obtained from the patient. Yes * Community resources currently utilized None * Please name any agencies selected above. NONE * Additional services required to return to the preadmission environment? No * Can the patient safely return to the preadmission environment? Yes * Has this patient been hospitalized within the prior 30 days at any hospital? No Coverage Notice Reviewer: [id number] Bhavana Slaughter Notice Issued Date-Time: 01/30/2020 11:45 Notice Type: Patient Choice Letter Notice Delivered To: Patient Relationship to Patient: Biomedical Repair Technician Name: Delivery Method: HAND - Hand Delivered Aisha Days: Prior Verbal Notification: Recipient Understood Notice: Yes Recipient Signature: Yes Med Rec Note Co-signed by Attending: Coverage Notice Comment: [facility] OR ANY NURSING FACILITY SELECTED BY HER SON Last DP export: 01/30/20 1:03 pm Patient Name: MUNIR PRUETT Page 40035 at 1512 All edits/amendments must be made on the electronic document DICTATION DATE: 01/30/201510 WHARF HAND: MADDIE 01/30/201510 RPT#: [id number] DC DATE: STATUS: ADM IN [facility] [address] [place] [address] END OF REPORT
[2020-01-31] VITALS: BP 141/76
[2020-01-31 04:00] VITALS: BP 142/88
[2020-01-31 05:54] LABS: BASOPHILS 0.4 % (0-2); EOSINOPHILS 4.7 % (0-7); HEMATOCRIT 29.2 % (36.0-48.0); HEMOGLOBIN 8.9 g/dL (12-16); IMMATURE GRANULOCYTES 0.9 % (0-5); LYMPHOCYTES 17.6 % (15-50); MCH 25.2 pg (26.0-34.0); MCHC 30.5 g/dL (31.0-37.0); MCV 82.7 fL (80.0-100.0); MEAN PLATELET VOLUME 10.2 fL (7.4-10.4); MONOCYTES 6.6 % (2-11); NEUTROPHILS 69.8 % (40-80); PLATELET COUNT 370 10x3/uL (130-400); RBC 3.53 10x6/uL (4.00-5.40); RDW 16.6 % (11.5-14.5); WBC 8.5 10x3/uL (4.8-10.8)
[2020-01-31 06:08] LABS: ANION GAP 14.2 mmol/L (8-16); CALCIUM 7.1 mg/dL (8.5-10.1); CARBON DIOXIDE 20.4 mmol/L (21.0-32.0); PHOSPHOROUS 5.5 mg/dL (2.5-4.9); POTASSIUM - SERUM 3.6 mmol/L (3.5-5.1)
[2020-01-31 09:09] LABS: ANTI-GLOMERULAR BASMENT MEMBRN 2 units (0-20)
[2020-01-31 10:08] VITALS: BP 163/72
--- NOTE | 2020-01-31 15:08 | MORECARE ---
CASE MANAGEMENT DISCHARGE SUMMARY PATIENT: MUNIR PRUETT UNIT: [id number] ADM DATE: 01/25/20 AGE: 59 : 58 SEX: F ROOM/BED: D.9542 AUTHOR: LIBRADO,DOC PHYSICIAN: REFERRING PHYSICIAN: PETER KAPLAN MD DATE OF SERVICE: 01/31/20 Discharge Plan Patient Name: MUNIR PRUETT Facility: [facility]:[place] : 1960 Planned Disposition: Nursing Facility [facility] Cert Anticipated Discharge Date: Discharge Date: Expected LOS: Initial Reviewer: [id number] Initial Review Date: 01/27/2020 Generated: 01/31/20 4:07 pm Comments DCP- Discharge Planning Updated by [id number]: Zeinab Slaughter on 01/31/20 1:[address] Patient Name: MUNIR PRUETT Encounter No: [id number] : 1960 Primary Insurance: [place] Anticipated DC Date: Planned Disposition: Nursing Facility [facility] Cert External Planned Provider: [facility], CARE HOME CARE MEDICAID BED DCP follow-up note: CM RECEIVED CALL FROM [facility] ([facility]), , SPOKE TO JOHN WHO INFORMED CM THAT THEY WILL ACCEPT PT FOR CARE HOME CARE WHEN JULIA IS APPROVED. CM WAITING JULIA DETERMINATION FOR DETENTION ADMISSION. WHEN JULIA IS APPROVED, NOTIFY THE [facility] AT [phone], FAX DISCHARGE INFORMATION TO THE [facility] AT [phone]. IF THE [facility] IS NOT ABLE TO PROVIDE TRANSPORTATION, NOTIFY PT'S ANN-MARIE PRUETT, SON, TO REQUEST FAMILY TRANSPORTATION. Zeinab Slaughter, CASE MANAGEMENT Appended by Zeinab Slaughter on 01/30/2020 15:05 CDT: CM RECEIVED CALL FROM PETER VERA WHO INFORMED CM THAT HE HAS DISCUSSED ADMISSION TO DETENTION WITH [facility] [place]. PETER ASKED REFERRAL BE SENT THERE FOR PLACEMENT. CM FAXED REFERRAL TO THE [facility] AT [phone], ATTENTION JOHN OF ADMISSIONS. CM WAITING ADMISSION DETERMINATION FOR CARE HOME CARE FROM THE [facility] [place] J[place]IA DETERMINATION. ZEINAB SLAUGHTER, CASE MANAGEMENT DCP- Discharge Planning Updated by [id number]: Zeinab Slaughter on 01/30/20 2:[address] Patient Name: MUNIR PRUETT Encounter No: [id number] : 1960 Primary Insurance: [place] Anticipated DC Date: Planned Disposition: Nursing Facility [facility] Cert External Planned Provider: [facility], CARE HOME CARE MEDICAID BED DCP follow-up note: CM SPOKE TO AMI HEATH IN MDT MEETING, PT WILL NEED SUPERVISION TO GO HOME. CM CALLED AND SPOKE TO PT'S MOTHER, ELLE GARCIA, ; ELLE REPORTS SHE IS NOT ABLE TO SUPERVISE PATIENT WHEN SHE IS "IN HER WAY". ELLE STATES THAT WHEN PT IS "IN HER WAY", SHE DOES NOT LISTEN TO DOSSIE AT ALL. SHE WILL NOT TAKE A BATH, REFUSES MEDICATIONS AND WILL NOT LET HER BLOOD SUGAR BE TAKEN PRESCRIBED. ELLE REPORTS THAT PT HAS 4 LIVING SONS AND THAT THE OLDEST SON WHO LIVES IN [place], IS GETTING POWER OF TRAINING OFFICER FOR PATIENT; HIS NAME IS ANN-MARIE PRUETT, , THEY ARE WORKING TO GET PT INTO THE [place] [facility]ENT[facility]. THEY STARTED WORKING ON THIS WHEN PT WAS IN THE [facility] PRIOR TO GOING TO [place]. CM CALLED ANN-MARIE PRUETT, , LEFT MESSAGE ASKING FOR RETURN CALL. CM MET WITH PT IN ROOM, DISCUSSED PLACEMENT. PT REPORTS AGREEMENT WITH HER SON, THEY ARE TRYING TO GET HER INTO THE DETENTION IN [place]. CHOICE SIGNED FOR [place] [facility] AND ANY OTHER DETENTION. PT ASSISTED CM IN COMPLETING JULIA SCREENING ASSESSMENT AND SIGNED. CM FAXED JULIA SCREENING TO [employer] WITH SUPPORTING PAPERWORK TO [phone]. CM [address] [facility] ([facility]), , SPOKE TO SEBAS WHO INFORMED CM THAT THEY HAVE NOT RECEIVED REFERRAL OR PHONE CALL PRIOR TO TODAY REGARDING PT NEEDING PLACEMENT. SEBAS ADVISED THAT REFERRAL SHOULD BE FAXED TO THE [facility] AT [phone], ATTENTION JOHN OF ADMISSIONS. CM WAITING RETURN CALL FROM DENISE PRUETT TO VERIFY REFERRAL TO BE SENT TO THE [facility]. CM WAITING JULIA DETERMINATION FOR DETENTION ADMISSION. Zeinab Slaughter, CASE MANAGEMENT Appended by Zeinab Slaughter on 01/30/2020 15:05 CDT: CM RECEIVED CALL FROM PETER VERA WHO INFORMED CM THAT HE HAS DISCUSSED ADMISSION TO DETENTION WITH [facility] IN [place]. PETER ASKED REFERRAL BE SENT THERE FOR PLACEMENT. CM FAXED REFERRAL TO THE [facility] AT [phone], ATTENTION JOHN OF ADMISSIONS. CM WAITING ADMISSION DETERMINATION FOR TRAFFIC CLERK CARE FROM THE [facility] [place] JULIA DETERMINATION. ZEINAB SLAUGHTER, CASE MANAGEMENT DCP- Discharge Planning Updated by [id number]: Zeinab Slaughter on 01/27/20 3:[address] Patient Name: MUNIR PURETT Admission Status: ER Accout number: [id number] Admission Date: 01-25-2020 : 1960 Admission Diagnosis: Attending: CARLITO Current LOS: 2 Anticipated DC Date: Planned Disposition: Home Primary Insurance: [place] Discharge Planning Comments: CM ATTEPTED TO SPEAK TO PT IN HALLWAY WITH NURSE AND OTHER STAFF PRESENT. PT HAD WALKED OUT OF NURSING UNIT IN PATIENT GOWN, STATES SHE IS LEAVING AND WILL NOT WAIT. WHEN HER PRESENT SITUATION AND LOCATION OF BEING IN [place] WAS EXPLAINED, PT STILL DEFIANT AND THREATING STAFF SAYING SHE WAS ABOUT TO "KICK SOMEBODY'S ASS". CM OBTAINED PHONE NUMBER FROM PT AFTER SHE WAS A BIT CALMER AND IN ROOM, PT REPORTS HER MOTHER'S NUMBER IS [phone]. CM CALLED AND THE NUMBER WAS NOT CORRECT. CM CALLED [phone], SPOKE TO JARAD ROMANO, PT'S PASTORS . SHE PROVIDED CM WITH PT'S MOTHER AND PT'S BROTHER'S PHONE NUMBERS: ELLE GARCIA, MOM, ESVIN GARCIA, BROTHER, CM CALLED ELLE GARCIA, MOM, . ELLE REPORTS PT HAS LIVED WITH HER SINCE 1981. PT IS INDEPENDENT AT HOME, DESPITE HAVING TWO STROKES. 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 PT HAS NO MEDICAL EQUIPMENT AND THEY HAVE NO MEDICAL EQUIPMENT PROVIDER PREFERENCE. FAMILY PLANS TO SUPERVISOR PACKING ROOM PT FOR DISCHARGE HOME BACK TO MOTHER'S HOME. ELLE STATES THAT THEY THOUGHT PT WAS HAVING ANOTHER STOKE AND SENT PT TO THE HOSPITAL AND THEY FOUND HER KIDNEYS WERE NOT DOING WELL AND SENT PT TO [place] FOR TREATMENT. ELLE WILL SPEAK TO PT AND TRY TO CALM HER DOWN. CM TRANSFERRED THE CALL TO PT'S ROOM. PT'S FAMILY PLANS FOR PT TO RETURN HOME WITH HER MOTHER. FAMILY TO TRANPSORT HOME AT DISCHARGE. CM TO FOLLOW AND MONITOR FOR DISCHARGE NEEDS. Fabric Worker Fitter: Zeinab Slaughter DCPIA - Discharge Planning Initial Assessment Updated by [id number]: Zeinab Slaughter on 01/30/20 11:18 am * Is the patient Alert and Oriented? Yes * How many steps to enter\\exit or inside your home? NONE * PCP ILEANA AMBROSIO * Pharmacy [facility] IN [place] * Preadmission Environment Home with Family * ADLs Independent * Equipment None * Other Equipment NO MEDICAL EQUIPMENT PROVIDER PREFERENCE * List name and contact numbers for known caregivers / representatives who currently or will assist patient after discharge: ELLE GARCIA, MOM, ANN-MARIE PRUETT, SON, ESVIN GARCIA, BROTHER, WHIT PRUETT, grand son, * Verbal permission to speak to the caregivers and representatives has been obtained from the patient. Yes * Community resources currently utilized None * Please name any agencies selected above. NONE * Additional services required to return to the preadmission environment? No * Can the patient safely return to the preadmission environment? Yes * Has this patient been hospitalized within the prior 30 days at any hospital? No Coverage Notice Reviewer: [id number] - Zeinab Slaughter Notice Issued Date-Time: 01/30/2020 11:45 Notice Type: Patient Choice Letter Notice Delivered To: Patient Relationship to Patient: Nuclear Medicine Pet Ct Technologist Name: Delivery Method: HAND - Hand Delivered Aisha Days: Prior Verbal Notification: Recipient Understood Notice: Yes Recipient Signature: Yes Med Rec Note Co-signed by Attending: Coverage Notice Comment: [facility] OR ANY NURSING FACILITY SELECTED BY HER SON Last DP export: 01/30/20 2:12 pm Patient Name: DANIEL PRUETTELYN Page 76961 at 1508 All edits/amendments must be made on the electronic document DICTATION DATE: 01/31/201506 CLINICAL RESEARCH PHYSICIAN: MADDIE 01/31/201506 RPT#: [id number] DC DATE: STATUS: ADM IN [facility] [address] [place] [address] END OF REPORT
[2020-01-31 15:09] LABS: ANCA - ANTIMYELOPEROXIDASE <9.0 U/mL (0.0-9.0); ANCA - ANTIPROTEINASE 3 <3.5 U/mL (0.0-3.5); ANCA - ATYPICAL <1:20 titer (Neg:<1:20); ANCA - CYTOPLASMIC <1:20 titer (Neg:<1:20); ANCA - PERINUCLEAR <1:20 titer (Neg:<1:20)
[2020-01-31 20:00] VITALS: BP 168/93
[2020-02-01 00:30] VITALS: BP 140/60
[2020-02-01 04:00] VITALS: BP 146/74
[2020-02-01 07:14] LABS: % SATURATION 17 % (15-55); IRON 21 ug/dl (35-150); TOTAL IRON BIND CAPACITY 123 ug/dl (260-445); UNSAT IRON BIND CAPACITY 102 ug/dl (150-375)
[2020-02-01 08:18] VITALS: BP 150/78
[2020-02-01 08:43] LABS: BASOPHILS 0.2 % (0-2); HEMATOCRIT 27.9 % (36.0-48.0); HEMOGLOBIN 8.6 g/dL (12-16); IMMATURE GRANULOCYTES 0.4 % (0-5); LYMPHOCYTES 15.1 % (15-50); MCH 25.6 pg (26.0-34.0); MCHC 30.8 g/dL (31.0-37.0); MEAN PLATELET VOLUME 10.2 fL (7.4-10.4); MONOCYTES 8.6 % (2-11); NEUTROPHILS 72.7 % (40-80); PLATELET COUNT 332 10x3/uL (130-400); RBC 3.36 10x6/uL (4.00-5.40); RDW 16.6 % (11.5-14.5)
[2020-02-01 08:45] LABS: CALCIUM 7.4 mg/dL (8.5-10.1); CARBON DIOXIDE 17.9 mmol/L (21.0-32.0); CREATININE - SERUM 3.8 mg/dL (0.6-1.3); POTASSIUM - SERUM 3.9 mmol/L (3.5-5.1)
[2020-02-01 11:37] VITALS: BP 152/82
[2020-02-01 20:00] VITALS: BP 149/74
[2020-02-02] VITALS: BP 148/76
[2020-02-02 04:00] VITALS: BP 158/80
[2020-02-02 05:56] LABS: BASOPHILS 0.4 % (0-2); EOSINOPHILS 3.1 % (0-7); HEMATOCRIT 29.9 % (36.0-48.0); HEMOGLOBIN 9.4 g/dL (12-16); IMMATURE GRANULOCYTES 0.3 % (0-5); LYMPHOCYTES 17.6 % (15-50); MCH 25.4 pg (26.0-34.0); MCHC 31.4 g/dL (31.0-37.0); MEAN PLATELET VOLUME 10.1 fL (7.4-10.4); MONOCYTES 9.4 % (2-11); NEUTROPHILS 69.2 % (40-80); PLATELET COUNT 374 10x3/uL (130-400); RDW 16.2 % (11.5-14.5); WBC 11.3 10x3/uL (4.8-10.8)
[2020-02-02 06:03] LABS: MCV 80.8 fL (80.0-100.0)
[2020-02-02 06:41] LABS: CALCIUM 7.6 mg/dL (8.5-10.1); CARBON DIOXIDE 18.8 mmol/L (21.0-32.0); CREATININE - SERUM 4.1 mg/dL (0.6-1.3); POTASSIUM - SERUM 3.8 mmol/L (3.5-5.1)
[2020-02-02 09:25] VITALS: BP 160/55
[2020-02-02 14:00] VITALS: BP 147/68
[2020-02-02 20:00] VITALS: BP 159/80
[2020-02-03] VITALS: BP 119/66
[2020-02-03 04:00] VITALS: BP 139/73
[2020-02-03 07:42] LABS: BASOPHILS 0.3 % (0-2); EOSINOPHILS 3.9 % (0-7); HEMATOCRIT 24.8 % (36.0-48.0); HEMOGLOBIN 7.6 g/dL (12-16); IMMATURE GRANULOCYTES 0.3 % (0-5); LYMPHOCYTES 20.9 % (15-50); MCH 25.2 pg (26.0-34.0); MCHC 30.6 g/dL (31.0-37.0); MCV 82.1 fL (80.0-100.0); MEAN PLATELET VOLUME 10.5 fL (7.4-10.4); MONOCYTES 9.5 % (2-11); NEUTROPHILS 65.1 % (40-80); PLATELET COUNT 322 10x3/uL (130-400); RBC 3.02 10x6/uL (4.00-5.40); RDW 16.3 % (11.5-14.5); WBC 8.7 10x3/uL (4.8-10.8)
[2020-02-03 07:51] LABS: ANION GAP 16.5 mmol/L (8-16); CALCIUM 7.9 mg/dL (8.5-10.1); CARBON DIOXIDE 17.2 mmol/L (21.0-32.0); CREATININE - SERUM 3.9 mg/dL (0.6-1.3); POTASSIUM - SERUM 3.7 mmol/L (3.5-5.1)
[2020-02-03 09:35] VITALS: BP 165/90
--- NOTE | 2020-02-03 12:58 | MORECARE ---
CASE MANAGEMENT DISCHARGE SUMMARY PATIENT: MUNIR PRUETT UNIT: [id number] ADM DATE: 01/25/20 AGE: 59 : 58 SEX: F ROOM/BED: D.7632 AUTHOR: LIBRADO,DOC PHYSICIAN: REFERRING PHYSICIAN: PETER KAPLAN MD DATE OF SERVICE: 02/03/20 Discharge Plan Patient Name: MUNIR PRUETT Facility: [facility]:[place] : 1960 Planned Disposition: Nursing Facility [facility] Cert Anticipated Discharge Date: Discharge Date: Expected LOS: Initial Reviewer: [id number] Initial Review Date: 01/27/2020 Generated: 02/03/20 1:58 pm Comments DCP- Discharge Planning Updated by [id number]: Court Damian on 02/03/20 11:[address] CM CALLED JULIA AND THEY HAVE A MESSAGE THAT THEY ARE CLOSED DUE TO COVID19 AND [facility] IS WAIVING THE NEED FOR A JULIA. I CALLED JOHN WITH THE [facility] AND HE STATES THEY CAN ACCEPT THE PATIENT TODAY, BUT THEY DO NOT HAVE ANY TRANSPORTATION. I CALLED PATIENT'S SON, AND HE STATES HE CAN TRANSPORT THE PATIENT WHEN DISCHARGED. PATIENT'S NURSE, REBEKA, STATES PATIENT IS SAFE TO TRANSPORT VIA PRIVATE VEHICLE. I CALLED [facility] AND INFORMED HER. CM WILL FAX DISCHARGE ORDER AND CLINICAL WHEN AVAILABLE. DCP- Discharge Planning Updated by [id number]: Zeinab Slaughter on 01/31/20 1:[address] Patient Name: MUNIR PRUETT Encounter No: [id number] : 1960 Primary Insurance: [place] Anticipated DC Date: Planned Disposition: Nursing Facility [facility] Cert External Planned Provider: [facility], DESPATCHING AND RECEIVING CLERK CARE MEDICAID BED DCP follow-up note: CM RECEIVED CALL FROM THE [facility] ([facility]), , SPOKE TO JOHN WHO INFORMED CM THAT THEY WILL ACCEPT PT FOR DESPATCHING AND RECEIVING CLERK CARE WHEN JULIA IS APPROVED. CM WAITING JULIA DETERMINATION FOR SENIOR CARE ADMISSION. WHEN JULIA IS APPROVED, NOTIFY THE [facility] AT [phone], FAX DISCHARGE INFORMATION TO THE [facility] AT [phone]. IF THE [facility] IS NOT ABLE TO PROVIDE TRANSPORTATION, NOTIFY PT'S ANN-MARIE PRUETT, SON, TO REQUEST FAMILY TRANSPORTATION. Zeinab Slaughter, CASE MANAGEMENT Appended by Zeinab Slaughter on 01/30/2020 15:05 CDT: CM RECEIVED CALL FROM PETER VERA WHO INFORMED CM THAT HE HAS DISCUSSED ADMISSION TO SENIOR CARE WITH [facility]. PETER ASKED REFERRAL BE SENT THERE FOR PLACEMENT. CM FAXED REFERRAL TO THE [facility] AT [phone], ATTENTION JOHN OF ADMISSIONS. CM WAITING ADMISSION DETERMINATION FOR DESPATCHING AND RECEIVING CLERK CARE FROM THE [facility] [place] JULIA DETERMINATION. ZEINAB SLAUGHTER, CASE MANAGEMENT DCP- Discharge Planning Updated by [id number]: Zeinab Slaughter on 01/30/20 2:[address] Patient Name: MUNIR PRUETT Encounter No: [id number] : 1960 Primary Insurance: MEDICAID [facility] [place] Date: Planned Disposition: Nursing Facility [facility] Cert External Planned Provider: [facility], HALFWAY CARE MEDICAID BED DCP follow-up note: JACK SPOKE TO AMI HEATH IN MDT MEETING, PT WILL NEED SUPERVISION TO GO HOME. JACK CALLED AND SPOKE TO PT'S MOTHER, ELLE GARCIA, ; MICHELLEPALU REPORTS SHE IS NOT ABLE TO SUPERVISE PATIENT WHEN SHE IS "IN HER WAY". ELLE STATES THAT WHEN PT IS "IN HER WAY", SHE DOES NOT LISTEN TO DOSSIE AT ALL. SHE WILL NOT TAKE A BATH, REFUSES MEDICATIONS AND WILL NOT LET HER BLOOD SUGAR BE TAKEN PRESCRIBED. ELLE REPORTS THAT PT HAS 4 LIVING SONS AND THAT THE OLDEST SON WHO LIVES IN [place], IS GETTING POWER OF CREDIT CONSULTANT FOR PATIENT; HIS NAME IS ANN-MARIE PRUETT, , THEY ARE WORKING TO GET PT INTO THE [facility]. THEY STARTED WORKING ON THIS WHEN PT WAS IN THE [facility] PRIOR TO GOING TO [place]. JACK CALLED ANN-MARIE PRUETT, , LEFT MESSAGE ASKING FOR RETURN CALL. JACK MET WITH PT IN ROOM, DISCUSSED PLACEMENT. PT REPORTS AGREEMENT WITH HER SON, THEY ARE TRYING TO GET HER INTO THE SENIOR CARE IN [place]. CHOICE SIGNED FOR [place] [facility] AND ANY OTHER SENIOR CARE. PT ASSISTED CM IN COMPLETING JULIA SCREENING ASSESSMENT AND SIGNED. CM FAXED JULIA SCREENING TO [employer] WITH SUPPORTING PAPERWORK TO [phone]. CM CALLED [facility] ([facility]), , SPOKE TO SEBAS WHO INFORMED CM THAT THEY HAVE NOT RECEIVED REFERRAL OR PHONE CALL PRIOR TO TODAY REGARDING PT NEEDING PLACEMENT. [facility] ADVISED THAT REFERRAL SHOULD BE FAXED TO THE [facility] AT [phone], ATTENTION JOHN OF ADMISSIONS. CM WAITING RETURN CALL FROM DENISE PRUETT TO VERIFY REFERRAL TO BE SENT TO THE [facility]. CM WAITING JULIA DETERMINATION FOR SENIOR CARE ADMISSION. Zeinab Slaughter, CASE MANAGEMENT Appended by Zeinab Slaughter on 01/30/2020 15:05 CDT: CM RECEIVED CALL FROM PETER VERA WHO INFORMED CM THAT HE HAS DISCUSSED ADMISSION TO SENIOR CARE WITH [facility] [place]. PETER ASKED REFERRAL BE SENT THERE FOR PLACEMENT. CM FAXED REFERRAL TO THE [facility] AT [phone], ATTENTION JOHN OF ADMISSIONS. CM WAITING ADMISSION DETERMINATION FOR HALFWAY CARE FROM THE [facility] JULIA DETERMINATION. ZEINAB SLAUGHTER, CASE MANAGEMENT DCP- Discharge Planning Updated by [id number]: Zeinab Slaughter on 01/27/20 3:[address] Patient Name: MUNIR PRUETT Admission Status: ER Accout number: [id number] Admission Date: 01-25-2020 : 1960 Admission Diagnosis: Attending: CARLITO Current LOS: 2 Anticipated DC Date: Planned Disposition: Home Primary Insurance: [place] Discharge Planning Comments: CM ATTEPTED TO SPEAK TO PT IN HALLWAY WITH NURSE AND OTHER STAFF PRESENT. PT HAD WALKED OUT OF NURSING UNIT IN PATIENT GOWN, STATES SHE IS LEAVING AND WILL NOT WAIT. WHEN HER PRESENT SITUATION AND LOCATION OF BEING IN [place] WAS EXPLAINED, PT STILL DEFIANT AND THREATING STAFF SAYING SHE WAS ABOUT TO "KICK SOMEBODY'S ASS". CM OBTAINED PHONE NUMBER FROM PT AFTER SHE WAS A BIT CALMER AND IN ROOM, PT REPORTS HER MOTHER'S NUMBER IS [phone]. CM CALLED AND THE NUMBER WAS NOT CORRECT. CM CALLED [phone], SPOKE TO JARAD ROMANO, PT'S PASTORS . SHE PROVIDED CM WITH PT'S MOTHER AND PT'S BROTHER'S PHONE NUMBERS: ELLE GARCIA MOM, ESVIN GARCIA, BROTHER, CM CALLED NIDA FAUST, . DOSSIE REPORTS PT HAS LIVED WITH HER SINCE 1981. PT IS INDEPENDENT AT HOME, DESPITE HAVING TWO STROKES. 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 PT HAS NO MEDICAL EQUIPMENT AND THEY HAVE NO MEDICAL EQUIPMENT PROVIDER PREFERENCE. FAMILY PLANS TO PUBLIC RELATIONS SUPERVISOR PT FOR DISCHARGE HOME BACK TO MOTHER'S HOME. ELLE STATES THAT THEY THOUGHT PT WAS HAVING ANOTHER STOKE AND SENT PT TO THE HOSPITAL AND THEY FOUND HER KIDNEYS WERE NOT DOING WELL AND SENT PT TO [place] FOR TREATMENT. ELLE WILL SPEAK TO PT AND TRY TO CALM HER DOWN. CM TRANSFERRED THE CALL TO PT'S ROOM. PT'S FAMILY PLANS FOR PT TO RETURN HOME WITH HER MOTHER. FAMILY TO TRANPSORT HOME AT DISCHARGE. CM TO FOLLOW AND MONITOR FOR DISCHARGE NEEDS. Template Cutter: Zeinab Slaughter DCPIA - Discharge Planning Initial Assessment Updated by [id number]: Zeinab Slaughter on 01/30/20 11:18 am * Is the patient Alert and Oriented? Yes * How many steps to enter\\exit or inside your home? NONE * PCP ILEANA AMBROSIO * Pharmacy [facility] * Preadmission Environment Home with Family * ADLs Independent * Equipment None * Other Equipment NO MEDICAL EQUIPMENT PROVIDER PREFERENCE * List name and contact numbers for known caregivers / representatives who currently or will assist patient after discharge: ELLE GARCIA MOM, ANN-MARIE PRUETT, SON, ESVIN GARCIA, BROTHER, WHIT PRUETT, grand son, * Verbal permission to speak to the caregivers and representatives has been obtained from the patient. Yes * Community resources currently utilized None * Please name any agencies selected above. NONE * Additional services required to return to the preadmission environment? No * Can the patient safely return to the preadmission environment? Yes * Has this patient been hospitalized within the prior 30 days at any hospital? No Coverage Notice Reviewer: [id number] Bhavana Slaughter Notice Issued Date-Time: 01/30/2020 11:45 Notice Type: Patient Choice Letter Notice Delivered To: Patient Relationship to Patient: Forming Process Line Worker Name: Delivery Method: HAND - Hand Delivered Aisha Days: Prior Verbal Notification: Recipient Understood Notice: Yes Recipient Signature: Yes Med Rec Note Co-signed by Attending: Coverage Notice Comment: [facility] OR ANY NURSING FACILITY SELECTED BY HER SON Last DP export: 01/31/20 2:08 p Patient Name: MUNIR PRUETT Page 77533 at 1258 All edits/amendments must be made on the electronic document DICTATION DATE: 02/03/201257 HEARING HEALTH TECHNICIAN: MADDIE 02/03/20 1258 RPT#: [id number] DC DATE: STATUS: ADM IN [facility] [address] [place] [address] END OF REPORT
[2020-02-03 13:55] LABS: % SATURATION 19 % (15-55); IRON 24 ug/dl (35-150); TOTAL IRON BIND CAPACITY 123 ug/dl (260-445); UNSAT IRON BIND CAPACITY 99 ug/dl (150-375)
[2020-02-03 14:23] VITALS: BP 152/65
[2020-02-03 20:00] VITALS: BP 140/74
[2020-02-04] VITALS: BP 142/76
[2020-02-04 04:00] VITALS: BP 155/78
[2020-02-04 05:49] LABS: BASOPHILS 0.4 % (0-2); HEMATOCRIT 26.8 % (36.0-48.0); HEMOGLOBIN 8.3 g/dL (12-16); IMMATURE GRANULOCYTES 0.3 % (0-5); LYMPHOCYTES 20.9 % (15-50); MCH 25.3 pg (26.0-34.0); MCV 81.7 fL (80.0-100.0); MEAN PLATELET VOLUME 9.6 fL (7.4-10.4); MONOCYTES 10.2 % (2-11); NEUTROPHILS 64.2 % (40-80); PLATELET COUNT 321 10x3/uL (130-400); RBC 3.28 10x6/uL (4.00-5.40); RDW 16.2 % (11.5-14.5)
[2020-02-04 06:06] LABS: ANION GAP 16.2 mmol/L (8-16); CALCIUM 7.7 mg/dL (8.5-10.1); CARBON DIOXIDE 17.6 mmol/L (21.0-32.0); CREATININE - SERUM 3.7 mg/dL (0.6-1.3); POTASSIUM - SERUM 3.8 mmol/L (3.5-5.1)
[2020-02-04 08:00] VITALS: BP 136/65
[2020-02-04] MEDS ORDERED: NIFEREX-150 CAP1 CA3 PO (12:47)
[2020-02-04] MEDS ORDERED: HYDRALAZINE HCL50 MG PO (12:48)
[2020-02-04] MEDS ORDERED: METOPROLOL TART50 MG PO (12:49)
[2020-02-04] MEDS ORDERED: Topamax PO (12:49)
[2020-02-04] MEDS ORDERED: CATAPRES TTS-3 TRANSDERM (12:49)
[2020-02-04] MEDS ORDERED: SODIUM BICARBO650 MG PO (12:50)
[2020-02-04] MEDS ORDERED: NEPHRO-VITE RX1 TAB PO (12:51)
[2020-02-04] MEDS ORDERED: GEODON20 MG PO (12:51)
[2020-02-04] MEDS ORDERED: ROCALTROL0.25 MCG PO (12:51)
[2020-02-04 13:25] VITALS: BP 125/79
--- NOTE | 2020-02-04 14:41 | MORECARE ---
CASE MANAGEMENT DISCHARGE SUMMARY PATIENT: MUNIR GUAN UNIT: [id number] ADM DATE: 01/25/20 AGE: 59 : 58 SEX: F ROOM/BED: D.2138 AUTHOR: LIBRADO,DOC PHYSICIAN: REFERRING PHYSICIAN: PETER KAPLAN MD DATE OF SERVICE: 02/04/20 Discharge Plan Patient Name: MUNIR GUAN Facility: [facility] : 1960 Planned Disposition: Nursing Facility [facility] Cert Anticipated Discharge Date: Discharge Date: Expected LOS: Initial Reviewer: [id number] Initial Review Date: 01/27/2020 Generated: 02/04/20 3:40 pm Comments DCP- Discharge Planning Updated by [id number]: Suki Carrasco on 02/04/20 1:[address] Spoke with Chandana [facility] [place] The facility is ready to accept the patient to a Medicaid bed. Chandana request that the patient be transported via ambulance. CM notified patient's brother, Esvin Garcia @[phone] and he states he will relay the message to the rest of the family. DCP- Discharge Planning Updated by [id number]: Court Damian on 02/03/20 11:[address] CM CALLED JULIA AND THEY HAVE A MESSAGE THAT THEY ARE CLOSED DUE TO COVID19 AND [facility] A JULIA. I CALLED CHANDANA WITH THE [facility] AT [place] AND HE STATES THEY CAN ACCEPT THE PATIENT TODAY, BUT THEY DO NOT HAVE ANY TRANSPORTATION. I CALLED PATIENT'S SON, AND HE STATES HE CAN TRANSPORT THE PATIENT WHEN DISCHARGED. PATIENT'S NURSE, REBEKA, STATES PATIENT IS SAFE TO TRANSPORT VIA PRIVATE VEHICLE. I CALLED JAY VINES APN AND INFORMED HER. CM WILL FAX DISCHARGE ORDER AND CLINICAL WHEN AVAILABLE. DCP- Discharge Planning Updated by [id number]: Zeinab Slaughter on 01/31/20 1:[address] Patient Name: MUNIR GUAN Encounter No: [id number] : 1960 Primary Insurance: MEDICAID [place] Anticipated DC Date: Planned Disposition: Nursing Facility [facility] Cert External Planned Provider: [facility] MEDICAID BED DCP follow-up note: CM RECEIVED CALL FROM THE [facility] ([facility]), , SPOKE TO CHANDANA WHO INFORMED CM THAT THEY WILL ACCEPT PT FOR [facility] WHEN JULIA IS APPROVED. CM WAITING JULIA DETERMINATION FOR INTERMEDIATE ADMISSION. WHEN JULIA IS APPROVED, NOTIFY THE [facility] AT [phone], FAX DISCHARGE INFORMATION TO THE [facility] AT [phone]. IF THE [facility] IS NOT ABLE TO PROVIDE TRANSPORTATION, NOTIFY PT'S ANN-MARIE GUAN, SON, TO REQUEST FAMILY TRANSPORTATION. Zeinab Slaughter, CASE MANAGEMENT Appended by Zeinab Slaughter on 01/30/2020 15:05 CDT: CM RECEIVED CALL FROM PETER VERA WHO INFORMED CM THAT HE HAS DISCUSSED ADMISSION TO INTERMEDIATE WITH CHANDANA [facility]. PETER ASKED REFERRAL BE SENT THERE FOR PLACEMENT. CM FAXED REFERRAL TO THE [facility] AT [phone], ATTENTION CHANDANA OF ADMISSIONS. CM WAITING ADMISSION DETERMINATION FOR [facility] FROM THE [facility] WELL JULIA DETERMINATION. ZEINAB SLAUGHTER, CASE MANAGEMENT DCP- Discharge Planning Updated by [id number]: Zeinab Slaughter on 01/30/20 2:[address] Patient Name: MUNIR GUAN Encounter No: [id number] : 1960 Primary Insurance: MEDICAID [facility] DC Date: Planned Disposition: Nursing Facility [facility] External Planned Provider: [facility] MEDICAID BED DCP follow-up note: CM SPOKE TO AMI HEATH IN MDT MEETING, PT WILL NEED SUPERVISION TO GO HOME. CM CALLED AND SPOKE TO PT'S MOTHER, ELLE GARCIA, ; MAGEDMiya REPORTS SHE IS NOT ABLE TO SUPERVISE PATIENT WHEN SHE IS "IN HER WAY". ELLE STATES THAT WHEN PT IS "IN HER WAY", SHE DOES NOT LISTEN TO DOSSIE AT ALL. SHE WILL NOT TAKE A BATH, REFUSES MEDICATIONS AND WILL NOT LET HER BLOOD SUGAR BE TAKEN PRESCRIBED. MAGEDMiya REPORTS THAT PT HAS 4 LIVING SONS AND THAT THE OLDEST SON WHO LIVES IN [place], IS GETTING POWER OF RESIDENTIAL ASSISTANT FOR PATIENT; HIS NAME IS ANN-MARIE GUAN, , THEY ARE WORKING TO GET PT INTO THE [place] INTERMEDIATE. THEY STARTED WORKING ON THIS WHEN PT WAS IN THE [facility] PRIOR TO GOING TO [place]. CM CALLED ANN-MARIE GUAN, , LEFT MESSAGE ASKING FOR RETURN CALL. CM MET WITH PT IN ROOM, DISCUSSED PLACEMENT. PT REPORTS AGREEMENT WITH HER SON, THEY ARE TRYING TO GET HER INTO THE INTERMEDIATE IN [place]. CHOICE SIGNED FOR [facility] [facility] AND ANY OTHER INTERMEDIATE. PT ASSISTED CM IN COMPLETING JULIA SCREENING ASSESSMENT AND SIGNED. CM FAXED JULIA SCREENING TO [facility] [facility] [facility] WITH SUPPORTING PAPERWORK TO [phone]. CM CALLED [facility] ([facility]), , SPOKE TO SEBAS WHO INFORMED CM THAT THEY HAVE NOT RECEIVED REFERRAL OR PHONE CALL PRIOR TO TODAY REGARDING PT NEEDING PLACEMENT. SEBAS ADVISED THAT REFERRAL SHOULD BE FAXED TO THE [facility] AT [phone], ATTENTION CHANDANA OF ADMISSIONS. CM WAITING RETURN CALL FROM DENISE GUAN TO VERIFY REFERRAL TO BE SENT TO THE [facility]. CM WAITING JULIA DETERMINATION FOR INTERMEDIATE ADMISSION. Zeinab Slaughter, CASE MANAGEMENT Appended by Zeinab Slaughter on 01/30/2020 15:05 CDT: CM RECEIVED CALL FROM PETER VERA WHO INFORMED CM THAT HE HAS DISCUSSED ADMISSION TO INTERMEDIATE WITH [facility] IN [place]. PETER ASKED REFERRAL BE SENT THERE FOR PLACEMENT. CM FAXED REFERRAL TO THE [facility] AT [phone], ATTENTION CHANDANA OF ADMISSIONS. CM WAITING ADMISSION DETERMINATION FOR [facility] CARE FROM THE [facility] WELL JULIA DETERMINATION. ZEINAB SLAUGHTER, CASE MANAGEMENT DCP- Discharge Planning Updated by [id number]: Zeinab Slaughter on 01/27/20 3:[address] Patient Name: MUNIR GUAN Admission Status: ER Accout number: [id number] Admission Date: 01-25-2020 : 1960 Admission Diagnosis: Attending: CARLITO Current LOS: 2 Anticipated DC Date: Planned Disposition: Home Primary Insurance: MEDICAID [place] Discharge Planning Comments: CM ATTEPTED TO SPEAK TO PT IN HALLWAY WITH NURSE AND OTHER STAFF PRESENT. PT HAD WALKED OUT OF NURSING UNIT IN PATIENT GOWN, STATES SHE IS LEAVING AND WILL NOT WAIT. WHEN HER PRESENT SITUATION AND LOCATION OF BEING IN [employer] WAS EXPLAINED, PT STILL DEFIANT AND THREATING STAFF SAYING SHE WAS ABOUT TO "KICK SOMEBODY'S ASS". CM OBTAINED PHONE NUMBER FROM PT AFTER SHE WAS A BIT CALMER AND IN ROOM, PT REPORTS HER MOTHER'S NUMBER IS [phone]. CM CALLED AND THE NUMBER WAS NOT CORRECT. CM CALLED [phone], SPOKE TO JARAD ROMANO, PT'S PASTORS . SHE PROVIDED CM WITH PT'S MOTHER AND PT'S BROTHER'S PHONE NUMBERS: ELLE GARCIA, MOM, ESVIN GARCIA, BROTHER, CM CALLED ELLE GARCIA MOM, . DOSSIMiya REPORTS PT HAS LIVED WITH HER SINCE 1981. PT IS INDEPENDENT AT HOME, DESPITE HAVING TWO STROKES. 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 PT HAS NO MEDICAL EQUIPMENT AND THEY HAVE NO MEDICAL EQUIPMENT PROVIDER PREFERENCE. FAMILY PLANS TO BURGLARY INVESTIGATOR PT FOR DISCHARGE HOME BACK TO MOTHER'S HOME. ELLE STATES THAT THEY THOUGHT PT WAS HAVING ANOTHER STOKE AND SENT PT TO THE HOSPITAL AND THEY FOUND HER KIDNEYS WERE NOT DOING WELL AND SENT PT TO [employer] FOR TREATMENT. ELLE WILL SPEAK TO PT AND TRY TO CALM HER DOWN. CM TRANSFERRED THE CALL TO PT'S ROOM. PT'S FAMILY PLANS FOR PT TO RETURN HOME WITH HER MOTHER. FAMILY TO TRANPSORT HOME AT DISCHARGE. CM TO FOLLOW AND MONITOR FOR DISCHARGE NEEDS. Rivet Tapping Machine Operator: Zeinab Slaughter DCPIA - Discharge Planning Initial Assessment Updated by [id number]: Zeinab Slaughter on 01/30/20 11:18 am * Is the patient Alert and Oriented? Yes * How many steps to enter\\exit or inside your home? NONE * PCP ILEANA AMBROSIO * Pharmacy [facility] IN [place] * Preadmission Environment Home with Family * ADLs Independent * Equipment None * Other Equipment NO MEDICAL EQUIPMENT PROVIDER PREFERENCE * List name and contact numbers for known caregivers / representatives who currently or will assist patient after discharge: ELLE GARCIA MOM, ANN-MARIE GUAN, SON, ESVIN GARCIA, BROTHER, WHIT GUAN, grand son, * Verbal permission to speak to the caregivers and representatives has been obtained from the patient. Yes * Community resources currently utilized None * Please name any agencies selected above. NONE * Additional services required to return to the preadmission environment? No * Can the patient safely return to the preadmission environment? Yes * Has this patient been hospitalized within the prior 30 days at any hospital? No Coverage Notice Reviewer: [id number] Bhavana Slaughter Notice Issued Date-Time: 01/30/2020 11:45 Notice Type: Patient Choice Letter Notice Delivered To: Patient Relationship to Patient: Lpn Medical Assistant Name: Delivery Method: HAND - Hand Delivered Aisha Days: Prior Verbal Notification: Recipient Understood Notice: Yes Recipient Signature: Yes Med Rec Note Co-signed by Attending: Coverage Notice Comment: [facility] OR ANY NURSING FACILITY SELECTED BY HER SON Reviewer: [id number] Bhavana Carrasco Notice Issued Date-Time: 02/03/2020 17:28 Notice Type: IM Discharge Notice Notice Delivered To: Patient Relationship to Patient: Self Lpn Medical Assistant Name: Munir Guan Delivery Method: HAND - Hand Delivered Aisha Days: Prior Verbal Notification: Recipient Understood Notice: Recipient Signature: Yes Med Rec Note Co-signed by Attending: Coverage Notice Comment: DC IMM signed and delivered to patient, one placed on the chart. Last DP export: 02/03/20 11:58 a Patient Name: MUNIR GUAN Page [id number] at 1441 All edits/amendments must be made on the electronic document DICTATION DATE: 02/04/20 1440 AIRDROP SYSTEMS TECHNICIAN: MADDIE 02/04/20 1440 RPT#: [id number] DC DATE: STATUS: ADM IN [facility] [address] [place] [address] END OF REPORT
--- NOTE | 2020-02-04 16:05 | MORECARE ---
CASE MANAGEMENT DISCHARGE SUMMARY PATIENT: MUNIR GUAN UNIT: [id number] ADM DATE: 01/25/20 AGE: 59 : 58 SEX: F ROOM/BED: D.2328 AUTHOR: LIBRADO,DOC PHYSICIAN: REFERRING PHYSICIAN: PETER KAPLAN MD DATE OF SERVICE: 02/04/20 Discharge Plan Patient Name: MUNIR GUAN Facility: [facility] : 1960 Planned Disposition: Nursing Facility [facility] Cert Anticipated Discharge Date: Discharge Date: Expected LOS: Initial Reviewer: [id number] Initial Review Date: 01/27/2020 Generated: 02/04/20 5:05 pm Comments DCP- Discharge Planning Updated by [id number]: Suki Carrasco on 02/04/20 3:[address] The nursing facility will not pay for the ambulance ride and patient's insurance will not reimburse the ambulance company. CM contacted the patient's son, Hilda #[phone] who lives in [place], will drive here to pick patient up and transport to the Nursing facility. Patient's nurse informed. DCP- Discharge Planning Updated by [id number]: Suki Carrasco on 02/04/20 1:[address] Spoke with Chandana [facility] [place] The facility is ready to accept the patient to a Medicaid bed. Chandana request that the patient be transported via ambulance. CM notified patient's brother, Esvin Garcia @[phone] and he states he will relay the message to the rest of the family. DCP- Discharge Planning Updated by [id number]: Court Damian on 02/03/20 11:[address] CM CALLED JULIA AND THEY HAVE A MESSAGE THAT THEY ARE CLOSED DUE TO COVID19 AND [facility] IS WAIVING THE NEED FOR A JULIA. I CALLED CHANDANA WITH THE [facility] AT [place] AND HE STATES THEY CAN ACCEPT THE PATIENT TODAY, BUT THEY DO NOT HAVE ANY TRANSPORTATION. I CALLED PATIENT'S SON, AND HE STATES HE CAN TRANSPORT THE PATIENT WHEN DISCHARGED. PATIENT'S NURSE, REBEKA, STATES PATIENT IS SAFE TO TRANSPORT VIA PRIVATE VEHICLE. I CALLED JAY [facility]IN[facility] AP[facility] AND INFORMED HER. CM WILL FAX DISCHARGE ORDER AND CLINICAL WHEN AVAILABLE. DCP- Discharge Planning Updated by [id number]: Zeinab Slaughter on 01/31/20 1:[address] Patient Name: MUNIR GUAN Encounter No: [id number] : 1960 Primary Insurance: MEDICAID [place] Anticipated DC Date: Planned Disposition: Nursing Facility [facility] Cert External Planned Provider: [facility] MEDICAID BED DCP follow-up note: CM RECEIVED CALL FROM THE [facility] ([facility]), , SPOKE TO CHANDANA WHO INFORMED CM THAT THEY WILL ACCEPT PT FOR [facility] WHEN JULIA IS APPROVED. CM WAITING JULIA DETERMINATION FOR [facility] ADMISSION. WHEN JULIA IS APPROVED, NOTIFY THE [facility] AT [phone], FAX DISCHARGE INFORMATION TO THE [facility] AT [phone]. IF THE [facility] IS NOT ABLE TO PROVIDE TRANSPORTATION, NOTIFY PT'S ANN-MARIE GUAN, SON, TO REQUEST FAMILY TRANSPORTATION. Zeinab Slaughter, CASE MANAGEMENT Appended by Zeinab Slaughter on 01/30/2020 15:05 CDT: CM RECEIVED CALL FROM PETER VERA WHO INFORMED CM THAT HE HAS DISCUSSED ADMISSION TO [facility] WITH [facility]ANDANA [facility]. PETER ASKED REFERRAL BE SENT THERE FOR PLACEMENT. CM FAXED REFERRAL TO THE [facility] AT [phone], ATTENTION CHANDANA OF ADMISSIONS. CM WAITING ADMISSION DETERMINATION FOR [facility] CARE FROM THE [facility] WE[facility] JULIA DETERMINATION. ZEINAB SLAUGHTER, CASE MANAGEMENT DCP- Discharge Planning Updated by [id number]: Zeinab Slaughter on 01/30/20 2:[address] Patient Name: MUNIR GUAN Encounter No: [id number] : 1960 Primary Insurance: MEDICAID [place] Anticipated DC Date: Planned Disposition: Nursing Facility [facility] Cert External Planned Provider: [facility] MEDICAID BED DCP follow-up note: CM SPOKE TO AMI HEATH IN MDT MEETING, PT WILL NEED SUPERVISION TO GO HOME. CM CALLED AND SPOKE TO PT'S MOTHER, ELLE GARCIA, ; ELLE REPORTS SHE IS NOT ABLE TO SUPERVISE PATIENT WHEN SHE IS "IN HER WAY". ELLE STATES THAT WHEN PT IS "IN HER WAY", SHE DOES NOT LISTEN TO DOSSIE AT ALL. SHE WILL NOT TAKE A BATH, REFUSES MEDICATIONS AND WILL NOT LET HER BLOOD SUGAR BE TAKEN PRESCRIBED. ELLE REPORTS THAT PT HAS 4 LIVING SONS AND THAT THE OLDEST SON WHO LIVES IN [place], IS GETTING POWER OF MANAGER COMMUNITY FOR PATIENT; HIS NAME IS ANN-MARIE GUAN, , THEY ARE WORKING TO GET PT INTO THE [place] [facility]. THEY STARTED WORKING ON THIS WHEN [facility] WAS IN [facility] PRIOR TO GOING TO [place]. CM CALLED ANN-MARIE GUAN, , LEFT MESSAGE ASKING FOR RETURN CALL. CM MET WITH PT IN ROOM, DISCUSSED PLACEMENT. PT REPORTS AGREEMENT WITH HER SON, THEY ARE TRYING TO GET [facility] INTO THE [facility] IN [place]. CHOICE SIGNED FOR [place] [facility] AND ANY OTHER [facility]. PT ASSISTED CM IN COMPLETING JULIA SCREENING ASSESSMENT AND SIGNED. CM FAXED JULIA SCREENING TO [facility] WITH SUPPORTING PAPERWORK TO [phone]. CM CALLED [facility]), , SPOKE TO SEBAS WHO INFORMED CM THAT THEY HAVE NOT RECEIVED REFERRAL OR PHONE CALL PRIOR TO TODAY REGARDING PT NEEDING PLACEMENT. SEBAS ADVISED THAT REFERRAL SHOULD BE FAXED TO THE [facility] AT [phone], ATTENTION CHANDANA OF ADMISSIONS. CM WAITING RETURN CALL FROM DENISE GUAN TO VERIFY REFERRAL TO BE SENT TO THE [facility]. CM WAITING JULIA DETERMINATION FOR [facility] ADMISSION. Zeinab Slaughter, CASE MANAGEMENT Appended by Zeinab Slaughter on 01/30/2020 15:05 CDT: CM RECEIVED CALL FROM PETER VERA WHO INFORMED CM THAT HE HAS DISCUSSED ADMISSION TO [facility] WITH [facility] IN [place]. PETER ASKED REFERRAL BE SENT THERE FOR PLACEMENT. CM FAXED REFERRAL TO THE [facility] AT [phone], ATTENTION CHANDANA OF ADMISSIONS. CM WAITING ADMISSION DETERMINATION FOR [facility] CARE FROM THE [facility] JULIA DETERMINATION. ZEINAB SLAUGHTER, CASE MANAGEMENT DCP- Discharge Planning Updated by [id number]: Zeinab Slaughter on 01/27/20 3:[address] Patient Name: MUNIR GUAN Admission Status: ER Accout number: [id number] Admission Date: 01-25-2020 : 1960 Admission Diagnosis: Attending: CARLITO Current LOS: 2 Anticipated DC Date: Planned Disposition: Home Primary Insurance: MEDICAID [place] Discharge Planning Comments: CM ATTEPTED TO SPEAK TO PT IN HALLWAY WITH NURSE AND OTHER STAFF PRESENT. PT HAD WALKED OUT OF NURSING UNIT IN PATIENT GOWN, STATES SHE IS LEAVING AND WILL NOT WAIT. WHEN HER PRESENT SITUATION AND LOCATION OF BEING IN [place] WAS EXPLAINED, PT STILL DEFIANT AND THREATING STAFF SAYING SHE WAS ABOUT TO "KICK SOMEBODY'S ASS". CM OBTAINED PHONE NUMBER FROM PT AFTER SHE WAS A BIT CALMER AND IN ROOM, PT REPORTS HER MOTHER'S NUMBER IS [phone]. CM CALLED AND THE NUMBER WAS NOT CORRECT. CM CALLED [phone], SPOKE TO JARAD ROMANO, PT'S PASTORS . SHE PROVIDED CM WITH PT'S MOTHER AND PT'S BROTHER'S PHONE NUMBERS: ELLE GARCIA, MOM, ESVIN GARCIA, BROTHER, CM CALLED ELLE GARCIA, MOM, . DOSSIE REPORTS PT HAS LIVED WITH HER SINCE 1981. PT IS INDEPENDENT AT HOME, DESPITE HAVING TWO STROKES. 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 PT HAS NO MEDICAL EQUIPMENT AND THEY HAVE NO MEDICAL EQUIPMENT PROVIDER PREFERENCE. FAMILY PLANS TO CODING ASSISTANT PT FOR DISCHARGE HOME BACK TO MOTHER'S HOME. DOSSIE STATES THAT THEY THOUGHT PT WAS HAVING ANOTHER STOKE AND SENT PT TO THE HOSPITAL AND THEY FOUND HER KIDNEYS WERE NOT DOING WELL AND SENT [facility] TO [facility] FOR TREAT[facility]. DOSSIE WILL SPEAK TO PT AND TRY TO CALM HER DOWN. CM TRANSFERRED THE CALL TO PT'S ROOM. PT'S FAMILY PLANS FOR PT TO RETURN HOME WITH HER MOTHER. FAMILY TO TRANPSORT HOME AT DISCHARGE. CM TO FOLLOW AND MONITOR FOR DISCHARGE NEEDS. Rn Chemical Dependency: Zeinab Slaughter DCPIA - Discharge Planning Initial Assessment Updated by [id number]: Zeinab Slaughter on 01/30/20 11:18 am * Is the patient Alert and Oriented? Yes * How many steps to enter\\exit or inside your home? NONE * PCP ILEANA AMBROSIO * Pharmacy [facility] IN [place] * Preadmission Environment Home with Family * ADLs Independent * Equipment None * Other Equipment NO MEDICAL EQUIPMENT PROVIDER PREFERENCE * List name and contact numbers for known caregivers / representatives who currently or will assist patient after discharge: ELLE GARCIA, MOM, ANN-MARIE GUAN, SON, ESVNI GARCIA, BROTHER, WHIT GUAN, grand son, * Verbal permission to speak to the caregivers and representatives has been obtained from the patient. Yes * Community resources currently utilized None * Please name any agencies selected above. NONE * Additional services required to return to the preadmission environment? No * Can the patient safely return to the preadmission environment? Yes * Has this patient been hospitalized within the prior 30 days at any hospital? No Coverage Notice Reviewer: [id number] - Zeinab Slaughter Notice Issued Date-Time: 01/30/2020 11:45 Notice Type: Patient Choice Letter Notice Delivered To: Patient Relationship to Patient: Rheumatology Nurse Name: Delivery Method: HAND - Hand Delivered Aisha Days: Prior Verbal Notification: Recipient Understood Notice: Yes Recipient Signature: Yes Med Rec Note Co-signed by Attending: Coverage Notice Comment: [facility] OR ANY NURSING FACILITY SELECTED BY HER SON Reviewer: [id number] Bhavana Carrasco Notice Issued Date-Time: 02/03/2020 17:28 Notice Type: IM Discharge Notice Notice Delivered To: Patient Relationship to Patient: Self Rheumatology Nurse Name: Munir Guan Delivery Method: HAND - Hand Delivered Aisha Days: Prior Verbal Notification: Recipient Understood Notice: Recipient Signature: Yes Med Rec Note Co-signed by Attending: Coverage Notice Comment: DC IMM signed and delivered to patient, one placed on the chart. Last DP export: 02/04/20 1:41 p Patient Name: MUNIR GUAN Page 76823 at 1605 All edits/amendments must be made on the electronic document DICTATION DATE: 02/04/20 1605 MAINTENANCE INSPECTOR: DM 02/04/201604 RPT#: [id number] DC DATE: STATUS: ADM IN [facility] [address] [place] [address] END OF REPORT
--- NOTE | 2020-02-05 08:52 | MORECARE ---
CASE MANAGEMENT DISCHARGE SUMMARY PATIENT: MUNIR GUAN UNIT: [id number] ADM DATE: 01/25/20 AGE: 59 : 58 SEX: F ROOM/BED: D.1862 AUTHOR: LIBRADO,DOC PHYSICIAN: REFERRING PHYSICIAN: PETER KAPLAN MD DATE OF SERVICE: 02/05/20 Discharge Plan Patient Name: MUNIR GUAN Facility: [facility]:[place] : 1960 Planned Disposition: Nursing Facility [facility] Cert Anticipated Discharge Date: Discharge Date: 02/04/2020 Expected LOS: Initial Reviewer: [id number] Initial Review Date: 01/27/2020 Generated: 02/05/20 9:52 am Comments DCP- Discharge Planning Updated by [id number]: Suki Carrasco on 02/04/20 3:[address] The nursing facility will not pay for the ambulance ride and patient's insurance will not reimburse the ambulance company. CM contacted the patient's son, Hilda #[phone] who lives in [place], will drive here to pick patient up and transport to the Nursing facility. Patient's nurse informed. DCP- Discharge Planning Updated by [id number]: Suki Carrasco on 02/04/20 1:[address] [facility] with [facility] [place] [place] The facility is ready to accept the patient to a Medicaid bed. [facility] request that the patient be transported via ambulance. CM notified patient's brother, Esvin Garcia @[phone] and he states he will relay the message to the rest of the family. DCP- Discharge Planning Updated by [id number]: Court Damian on 02/03/20 11:[address] CM CALLED [facility] AND THEY HAVE A MESSAGE THAT THEY ARE CLOSED DUE TO COVID19 AND [facility] IS WAIVING THE NEED FOR A JULIA. I CALLED CHANDANA WITH THE [facility] AND HE STATES THEY CAN ACCEPT THE PATIENT TODAY, BUT THEY DO NOT HAVE ANY TRANSPORTATION. I CALLED PATIENT'S SON, AND HE STATES HE CAN TRANSPORT THE PATIENT WHEN DISCHARGED. PATIENT'S NURSE, REBEKA, STATES PATIENT IS SAFE TO TRANSPORT VIA PRIVATE VEHICLE. I CALLED [facility] AND INFORMED HER. CM WILL FAX DISCHARGE ORDER AND CLINICAL WHEN AVAILABLE. DCP- Discharge Planning Updated by [id number]: Zeinab Slaughter on 01/31/20 1:[address] Patient Name: MUNIR GUAN Encounter No: [id number] : 1960 Primary Insurance: [place] Anticipated DC Date: Planned Disposition: Nursing Facility [facility] Cert External Planned Provider: [facility] MEDICAID BED DCP follow-up note: CM RECEIVED CALL FROM THE [facility] ([facility]), , SPOKE TO CHANDANA WHO INFORMED CM THAT THEY WILL ACCEPT PT FOR [facility] WHEN JULIA IS APPROVED. CM WAITING JULIA DETERMINATION FOR RETIREMENT ADMISSION. WHEN JULIA IS APPROVED, NOTIFY THE [facility] AT [phone], FAX DISCHARGE INFORMATION TO THE [facility] AT [phone]. IF THE [facility] IS NOT ABLE TO PROVIDE TRANSPORTATION, NOTIFY PT'S ANN-MARIE GUAN, SON, TO REQUEST FAMILY TRANSPORTATION. Zeinab Slaughter, CASE MANAGEMENT Appended by Zeinab Slaughter on 01/30/2020 15:05 CDT: CM RECEIVED CALL FROM PETER VERA WHO INFORMED CM THAT HE HAS DISCUSSED ADMISSION TO RETIREMENT WITH CHANDANA [facility]. PETER ASKED REFERRAL BE SENT THERE FOR PLACEMENT. CM FAXED REFERRAL TO THE [facility] AT [phone], ATTENTION CHANDANA OF ADMISSIONS. CM WAITING ADMISSION DETERMINATION FOR [facility] FROM THE [facility] WE[facility] JULIA DETERMINATION. ZEINAB SLAUGHTER, CASE MANAGEMENT DCP- Discharge Planning Updated by [id number]: Zeinab Slaughter on 01/30/20 2:[address] Patient Name: MUNIR GUAN Encounter No: [id number] : 1960 Primary Insurance: [place] Anticipated DC Date: Planned Disposition: Nursing Facility [facility] Cert External Planned Provider: [facility] ASSIST[facility] MEDICAID BED DCP follow-up note: CM SPOKE TO AMI HEATH IN MDT MEETING, PT WILL NEED SUPERVISION TO GO HOME. CM CALLED AND SPOKE TO PT'S MOTHER, ELLE GARCIA, ; ELLE REPORTS SHE IS NOT ABLE TO SUPERVISE PATIENT WHEN SHE IS "IN HER WAY". ELLE STATES THAT WHEN PT IS "IN HER WAY", SHE DOES NOT LISTEN TO DOSSIE AT ALL. SHE WILL NOT TAKE A BATH, REFUSES MEDICATIONS AND WILL NOT LET HER BLOOD SUGAR BE TAKEN PRESCRIBED. ELLE REPORTS THAT PT HAS 4 LIVING SONS AND THAT THE OLDEST SON WHO LIVES IN [place], IS GETTING POWER OF KEYSEATING MACHINE SET UP OPERATOR FOR PATIENT; HIS NAME IS ANN-MARIE GUAN, , THEY ARE WORKING TO GET PT INTO THE [place] [facility]. THEY STARTED WORKING ON THIS WHEN PT WAS IN THE [facility] PRIOR TO GOING TO [place]. CM CALLED ANN-MARIE GUAN, , LEFT MESSAGE ASKING FOR RETURN CALL. CM MET WITH PT IN ROOM, DISCUSSED PLACEMENT. PT REPORTS AGREEMENT WITH HER SON, THEY ARE TRYING TO GET HER INTO THE RETIREMENT IN [place]. CHOICE SIGNED FOR [facility] AND ANY OTHER RETIREMENT. PT ASSISTED CM IN COMPLETING JULIA SCREENING ASSESSMENT AND SIGNED. CM FAXED JULIA SCREENING TO [facility] WITH SUPPORTING PAPERWORK TO [phone]. CM CALLED [facility] ([facility]), , SPOKE TO SEBAS WHO INFORMED CM THAT THEY HAVE NOT RECEIVED REFERRAL OR PHONE CALL PRIOR TO TODAY REGARDING PT NEEDING PLACEMENT. SEBAS ADVISED THAT REFERRAL SHOULD BE FAXED TO THE [facility] AT [phone], ATTENTION CHANDANA OF ADMISSIONS. CM WAITING RETURN CALL FROM DENISE GUAN TO VERIFY REFERRAL TO BE SENT TO THE [facility]. CM WAITING JULIA DETERMINATION FOR RETIREMENT ADMISSION. Zeinab Slaughter, CASE MANAGEMENT Appended by Zeinab Slaughter on 01/30/2020 15:05 CDT: CM RECEIVED CALL FROM PETER VERA WHO INFORMED CM THAT HE HAS DISCUSSED ADMISSION TO RETIREMENT WITH CHANDANA [facility] IN [place]. PETER ASKED REFERRAL BE SENT THERE FOR PLACEMENT. CM FAXED REFERRAL TO THE [facility] AT [phone], ATTENTION CHANDANA OF ADMISSIONS. CM WAITING ADMISSION DETERMINATION FOR ASSISTED CARE FROM THE [facility] JULIA DETERMINATION. ZEINAB SLAUGHTER, CASE MANAGEMENT DCP- Discharge Planning Updated by [id number]: Zeinab Slaughter on 01/27/20 3:[address] Patient Name: MUNIR GUAN Admission Status: ER Accout number: [id number] Admission Date: 01-25-2020 : 1960 Admission Diagnosis: Attending: CARLITO Current LOS: 2 Anticipated DC Date: Planned Disposition: Home Primary Insurance: [place]ID [place] Discharge Planning Comments: CM ATTEPTED TO SPEAK TO PT IN [place] WITH NURSE AND OTHER STAFF PRESENT. PT HAD WALKED OUT OF NURSING UNIT IN PATIENT GOWN, STATES SHE IS LEAVING AND WILL NOT WAIT. WHEN HER PRESENT SITUATION AND LOCATION OF BEING IN [place] WAS EXPLAINED, PT STILL DEFIANT AND THREATING STAFF SAYING SHE WAS ABOUT TO "KICK SOMEBODY'S ASS". CM OBTAINED PHONE NUMBER FROM PT AFTER SHE WAS A BIT CALMER AND IN ROOM, PT REPORTS HER MOTHER'S NUMBER IS [phone]. CM CALLED AND THE NUMBER WAS NOT CORRECT. CM CALLED [phone], SPOKE TO JARAD ROMANO, PT'S PASTORS . SHE PROVIDED CM WITH PT'S MOTHER AND PT'S BROTHER'S PHONE NUMBERS: ELLE GARCIA, MOM, ESVIN GARCIA, BROTHER, CM CALLED ELLE GARCIA, MOM, . DOSSIE REPORTS PT HAS LIVED WITH HER SINCE 1981. PT IS INDEPENDENT AT HOME, DESPITE HAVING TWO STROKES. 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 PT HAS NO MEDICAL EQUIPMENT AND THEY HAVE NO MEDICAL EQUIPMENT PROVIDER PREFERENCE. FAMILY PLANS TO SPA RECEPTIONIST PT FOR DISCHARGE HOME BACK TO MOTHER'S HOME. DOSSIE STATES THAT THEY THOUGHT PT WAS HAVING ANOTHER STOKE AND SENT PT TO THE HOSPITAL AND THEY FOUND HER KIDNEYS WERE NOT DOING WELL AND SENT PT TO [place] FOR TREATMENT. DOSSIE WILL SPEAK TO PT AND TRY TO CALM HER DOWN. CM TRANSFERRED THE CALL TO PT'S ROOM. PT'S FAMILY PLANS FOR PT TO RETURN HOME WITH HER MOTHER. FAMILY TO TRANPSORT HOME AT DISCHARGE. CM TO FOLLOW AND MONITOR FOR DISCHARGE NEEDS. Fence Rider: Zeinab Slaughter DCPIA - Discharge Planning Initial Assessment Updated by [id number]: Zeinab Slaughter on 01/30/20 11:18 am * Is the patient Alert and Oriented? Yes * How many steps to enter\\exit or inside your home? NONE * PCP ILEANA AMBROSIO * Pharmacy [facility] IN [place] * Preadmission Environment Home with Family * ADLs Independent * Equipment None * Other Equipment NO MEDICAL EQUIPMENT PROVIDER PREFERENCE * List name and contact numbers for known caregivers / representatives who currently or will assist patient after discharge: ELLE GARCIA, MOM, ANN-MARIE GUAN, SON, ESVIN GARCIA, BROTHER, WHIT GUAN, grand son, * Verbal permission to speak to the caregivers and representatives has been obtained from the patient. Yes * Community resources currently utilized None * Please name any agencies selected above. NONE * Additional services required to return to the preadmission environment? No * Can the patient safely return to the preadmission environment? Yes * Has this patient been hospitalized within the prior 30 days at any hospital? No Coverage Notice Reviewer: [id number] - Zeinab Slaughter Notice Issued Date-Time: 01/30/2020 11:45 Notice Type: Patient Choice Letter Notice Delivered To: Patient Relationship to Patient: Trimmer And Borer Machine Operator Name: Delivery Method: HAND - Hand Delivered Aisha Days: Prior Verbal Notification: Recipient Understood Notice: Yes Recipient Signature: Yes Med Rec Note Co-signed by Attending: Coverage Notice Comment: [facility] OR ANY NURSING FACILITY SELECTED BY HER SON Reviewer: [id number] Bhavana Carrasco Notice Issued Date-Time: 02/03/2020 17:28 Notice Type: IM Discharge Notice Notice Delivered To: Patient Relationship to Patient: Self Trimmer And Borer Machine Operator Name: Munir Guan Delivery Method: HAND - Hand Delivered Aisha Days: Prior Verbal Notification: Recipient Understood Notice: Recipient Signature: Yes Med Rec Note Co-signed by Attending: Coverage Notice Comment: DC IMM signed and delivered to patient, one placed on the chart. Last DP export: 02/04/20 3:05 p Patient Name: MUNIR GUAN Page [phone] at 0852 All edits/amendments must be made on the electronic document DICTATION DATE: 02/05/20851 AMBULANCE MECHANIC: DM 02/05/20 0852 RPT#: [id number] DC DATE:02/04/20 STATUS: DIS IN [facility] [address] [facility] [place] [address] END OF REPORT
== END 2020-02-04 19:37 | DRG 682 ==
LOC: D.ER 16:15 → D.ICU 18:09 → D.CVICU 18:09 → D.M2 18:09 → D.CVICU 01-26 20:12 → D.M2 01-27 12:53
PROVIDERS: Family Medicine; Internal Medicine Nephrology; ADMIT Family Medicine; ATTEND Family Medicine
DX: N17.9 Acute kidney failure, unspecified (principal); G93.41 Metabolic encephalopathy; I16.9 Hypertensive crisis, unspecified; E44.0 Moderate protein-calorie malnutrition; I13.0 Hypertensive heart and chronic kidney disease with heart failure and stage 1 through stage 4 chronic kidney disease, or unspecified chronic kidney disease; F17.203 Nicotine dependence unspecified, with withdrawal; N18.4 Chronic kidney disease, stage 4 (severe); E11.22 Type 2 diabetes mellitus with diabetic chronic kidney disease; E87.5 Hyperkalemia; I50.9 Heart failure, unspecified; Z68.21 Body mass index [BMI] 21.0-21.9, adult; D50.9 Iron deficiency anemia, unspecified; D63.1 Anemia in chronic kidney disease; Z86.73 Personal history of transient ischemic attack (TIA), and cerebral infarction without residual deficits